=== PATIENT | female | born 1940 | race Caucasian/White ===

== ENCOUNTER → 2017-12-13 | Outpatient (CLI) | payer MEDICARE, OTHER ==
[~2017-12-13] MED LIST: ALBUTEROL SULFAT4 MG; ALBUTEROL SULFAT4 MG PO; ALBUTEROL2.5 MG/32; AMITRIPTYLINE H25 M2 PO; AMITRIPTYLINE H25 M4 PO; ASMANEX0.135 G1; ASMANEX0.135 G1 INH; ASMANEX220 MC2 IH; ASMANEX220 MCG INH; ASPIR 8181 MG PO; AVELOX 400 MG400 M1 PO; CALCIUM PO; DALIRESP500 MCG PO; ECHINACEA; EVISTA PO; Echinacea PO; FLONASE 0.05%50 MCG NASAL; FLONASE16 GM NASAL; FORADIL12 MCG INH; FUROSEMIDE 20 M20 MG; IBUPROFEN 200200 M1; IBUPROFEN 400400 M2 PO; IBUPROFEN 800800 M1 PO; K-DUR10 MEQ PO; LORTAB 5-500 T1 EAC1 PO; MULTIVITAMINS PO; MULTIVITAMINS1 EAC7 PO; OXYCODONE HCL 55 MG PO; PERCOCET 5-3251 EACH PO; PREDNISONE 10 M10 M1 PO; PREDNISONE 10 M10 MG PO; PROTONIX 20 MG20 MG PO; PROVENTIL HFA6.7 G1 INH; SINGULAIR 10 MG10 M1 PO; SPIRIVA; SPIRIVA INH; TRU BIOTICS; VENTOLIN HFA 1818 GM INH; VENTOLIN HFA INH8 GM INH; VERAPAMIL ER180 MG PO; VITAMIN C + RO500 MG PO; VITAMIN D31000 UNI2 PO; VITAMIN D400 UNI1 PO; VITAMINC500 PO; Vitamin C PO; [UNRECOGNIZED DRUG - OTHER] PO; [UNRECOGNIZED DRUG - OTHER] PO
== END ==
LOC: M.RAD 10:50
DX: Z12.31 Encounter for screening mammogram for malignant neoplasm of breast (principal); J44.9 Chronic obstructive pulmonary disease, unspecified

== ENCOUNTER → 2018-09-13 | Outpatient (CLI) | payer MEDICARE, OTHER ==
[2018-09-13 09:15] LABS: BE 2.5 mmol/L (-2 to +3); PCO2 40.2 mmHg (35.0-45.0); PO2 94.2 mmHg (75.0-100.0); pH 7.441 (7.340-7.450)
== END ==
LOC: M.LAB 08:24
PROVIDERS: Internal Medicine Pulmonary Disease
DX: J96.11 Chronic respiratory failure with hypoxia (principal)

== ENCOUNTER 2018-12-17 09:15 | Emergency (ER) | payer MEDICARE, OTHER ==
[~2018-12-17] VITALS: Ht 157.5 cm; Wt 63.5 kg
[2018-12-17] MEDS ORDERED: TRELOGY (09:45)
[2018-12-17] MEDS ORDERED: CLEOCIN HCL300 MG PO (10:02)
[2018-12-17] MEDS ORDERED: DOXYCYCLINE 10100 MG PO (10:02)
[2018-12-17 10:13] VITALS: BP 151/86
== END 2018-12-17 10:15 | disposition home or self-care (01) ==
LOC: M.ERS 09:15
DX: S61.511A Laceration without foreign body of right wrist, initial encounter (principal); J44.9 Chronic obstructive pulmonary disease, unspecified; M81.0 Age-related osteoporosis without current pathological fracture; Z98.890 Other specified postprocedural states; Z90.49 Acquired absence of other specified parts of digestive tract; Z90.89 Acquired absence of other organs; Z88.1 Allergy status to other antibiotic agents; Z88.2 Allergy status to sulfonamides; Z87.891 Personal history of nicotine dependence; W54.0XXA Bitten by dog, initial encounter; Y93.89 Activity, other specified; Y92.89 Other specified places as the place of occurrence of the external cause; Y99.8 Other external cause status

== ENCOUNTER → 2019-03-14 | Outpatient (CLI) | payer MEDICARE, OTHER ==
[~2019-03-14] MED LIST changes: +CLEOCIN HCL300 MG PO; +DOXYCYCLINE 10100 MG PO; +TRELOGY
== END ==
LOC: M.RAD 08:07
DX: Z12.31 Encounter for screening mammogram for malignant neoplasm of breast (principal)

== ENCOUNTER → 2019-04-13 | Outpatient (CLI) | payer MEDICARE, OTHER ==
[2019-04-13 09:17] LABS: CREATININE 0.8 mg/dL (0.6-1.3)
== END ==
LOC: M.LAB 08:00 → M.CT 09:00
PROVIDERS: Internal Medicine Pulmonary Disease
DX: J43.9 Emphysema, unspecified (principal); J44.9 Chronic obstructive pulmonary disease, unspecified

== ENCOUNTER → 2019-04-25 | Day surgery (SDC) | payer MEDICARE, OTHER ==
[~2019-04-25] MED LIST changes: +TRELEGY ELLIPT1 EACH INH
[2019-04-25 08:57] LABS: HEMATOCRIT 42.6 % (37.0-47.0); HEMOGLOBIN 14.5 gm/dL (12.0-15.0); MCH 34.2 pg (26.0-34.0); MCV 100.6 fL (80.0-100.0); MPV 7.3 fl. (7.2-11.1); RBC 4.23 mil/uL (4.20-5.00); RDW-CV 13.7 % (10.5-14.5); WBC 14.2 thou/uL (4.0-11.0)
[2019-04-25 09:06] LABS: CALCIUM 8.7 mg/dL (8.5-10.1); CREATININE 0.9 mg/dL (0.6-1.3)
[2019-04-25 09:09] LABS: POTASSIUM 2.9 mmol/L (3.5-5.1)
[2019-04-25 12:49] LABS: MAGNESIUM 1.4 mg/dL (1.8-2.4)
--- NOTE | 2019-04-27 15:08 | PATH ---
[address] [address] PATHOLOGY RPT PROCEDURE Name: FERN SHER Room: [facility].#: [id number] Admission: 04/25/19 Date of : 42 Discharge: Report #: [id number] Path Case #: [id number] [facility] Accession Number: [id number] . 01 Material submitted: . colon - MID TRANSVERSE COLON POLYP. Modifiers: mid, transverse . 01 Clinical history: . Change in bowel habits; family history of breast cancer; fecal urgency . 02 Diagnosis: Mid transverse colon polyp: - Tubular adenoma, negative for high grade dysplasia. . (HECTOR:mml; 04/27/2019) [facility] 04/27/2019 1148 Local . 02 Electronically signed: . Rupert Bloom MD, Pathologist NPI- [id number] . 01 Gross description: . The specimen is received in formalin, labeled "Fern Bittel, mid transverse colon polyp". Received are four segments of pale amaya soft tissue ranging in size from 0.3 to 0.5 cm in maximum dimensions. The specimen is submitted entirely in cassette A1. (CAA; 04/26/2019) [facility] 04/26/2019 1151 Local . 02 Pathologist provided ICD-10: D12.3 . 02 CPT . 542743 Specimen Comment: A courtesy copy of this report has been sent to [phone] Specimen Comment: Report sent to Performed at: [address], [place], [place] [id number] MD Andrey Pennington MD Phone: [phone] Performed at: [facility] [address], [place], [place] [id number] MD Rupert Bloom MD Phone: [phone]
--- NOTE | 2019-05-11 14:52 | EKG ---
[place] [address] ELECTROCARDIOGRAM REPORT Name: ELISE SHER Room: [facility]#: [id number] Admission: 04/25/19 Attend Phys: Mark Marsh, Discharge: Date of : 42 Date of Service: 04/25/19 0854 Report #: [id number] THIS REPORT FOR: //name// [facility] Test Date: 2019-04-25 Test Time: 08:54:54 Pat Name: ELISE SHER Department: Room: Gender: F Guest Services: : 1940 Requested By: Mark Marsh Order Number: [id number] Reading MD: Nikolai Zhong Measurements Intervals [place] Rate: 116 P: 81 MS: 147 QRS: 64 QRSD: 93 T: 56 QT: 330 QTc: 459 Interpretive Statements Sinus tachycardia Atrial premature complex Borderline ST depression, diffuse leads Compared to ECG 11/01/2016 12:58:40 Atrial premature complex(es) now present ST (T wave) deviation now present Sinus rhythm no longer present Electronically Signed On 04-26-2019 11:09:58 SHELL PLATER by Nikolai Zhong [email or web address] <ELECTRONICALLY SIGNED> By: Nikolai Zhong MD, FACC 04/26/19 1109 0854 0854 Nikolai Zhong MD, FACC /EPI
== END | disposition home or self-care (01) ==
LOC: M.SUR 08:31
PROVIDERS: Internal Medicine Gastroenterology
DX: D12.3 Benign neoplasm of transverse colon (principal); K62.1 Rectal polyp; K64.8 Other hemorrhoids; K64.4 Residual hemorrhoidal skin tags; K59.00 Constipation, unspecified; K57.30 Diverticulosis of large intestine without perforation or abscess without bleeding; K22.2 Esophageal obstruction; K31.819 Angiodysplasia of stomach and duodenum without bleeding; K44.9 Diaphragmatic hernia without obstruction or gangrene; J44.9 Chronic obstructive pulmonary disease, unspecified; K21.9 Gastro-esophageal reflux disease without esophagitis; M19.90 Unspecified osteoarthritis, unspecified site; Z98.890 Other specified postprocedural states; Z79.899 Other long term (current) drug therapy; Z87.891 Personal history of nicotine dependence; Z90.49 Acquired absence of other specified parts of digestive tract; Z88.2 Allergy status to sulfonamides; Z98.51 Tubal ligation status; Z88.8 Allergy status to other drugs, medicaments and biological substances; Z80.3 Family history of malignant neoplasm of breast

== ENCOUNTER → 2019-07-23 | Outpatient (CLI) | payer MEDICARE, OTHER ==
--- NOTE | 2019-07-23 16:31 | 2DMMODE ---
[place] [address] 2 D/M-MODE ECHOCARDIOGRAM Name: ELISE SHER Room: [facility]#: [id number] Admission: 07/23/19 Attend Phys: Physician not on s Discharge: Date of : 42 Date of Service: 07/23/19 1629 Report #: [id number] THIS REPORT FOR: cc: Chely Burch Linda J. DO Liston, Michael J. MD [facility] ~ APPROVED REPORT Study performed: 07/23/2019 09:31:56 EXAM: Comprehensive 2D, Doppler, and color-flow Echocardiogram Patient Location: Out-Patient BSA: 1.64 HR: 98 bpm BP: 130/75 mmHg Other Information Study Quality: Good Indications COPD Dyspnea 2D Dimensions IVSd: 11.63 (7-11mm) LVOT Diam: 20.35 (18-24mm) LVDd: 37.49 mm PWd: 9.65 (7-11mm) Ascending Ao: 26.43 (22-36mm) LVDs: 27.72 (25-40mm) Aortic Root: 22.04 mm Volumes Left Atrial Volume (Systole) LA ESV Index: 13.70 mL/m2 Aortic Valve AoV Peak Ian.: 1.67 m/s AO Peak Gr.: 11.13 mmHg LVOT Max P.43 mmHg AO Mean Gr.: 6.23 mmHg LVOT Mean P.92 mmHg LVOT Max V: 1.05 m/s AO V2 VTI: 29.07 cm LVOT Mean V: 0.62 m/s GUANAKO (VTI): 2.20 cm2 LVOT V1 VTI: 19.63 [place] [address] 2 D/M-MODE ECHOCARDIOGRAM Name: ELISE SHER Room: [facility]#: [id number] Admission: 07/23/19 Attend Phys: Physician not on s Discharge: Date of : 42 Date of Service: 07/23/19 1629 Report #: [id number] E/A Ratio: 0.79 MV Decel. Time: 234.13 ms MV E Max Ian.: 0.74 m/s MV PHT: 67.90 ms MVA (PHT): 3.24 cm2 TDI E/Lateral E': 7.40 E/Medial E': 8.22 Medial E' Ian.: 0.09 m/s Lateral E' Ian.: 0.10 m/s Pulmonary Valve PV Peak Ian.: 0.99 m/s PV Peak Gr.: 3.94 mmHg Tricuspid Valve RAP Estimate: 5.00 mmHg TR Peak Gr.: 19.79 mmHg RVSP: 24.79 mmHg PA Pressure: 24.79 mmHg Left Ventricle The left ventricle is normal size. There is normal LV segmental wall motion. There is normal left ventricular wall thickness. Left ventricular systolic function is normal. LVEF is 55-60%. Grade I - abnormal relaxation pattern. Right Ventricle The right ventricle is normal size. The right ventricular systolic function is normal. Atria The left atrium size is normal. The right atrium size is normal. Aortic Valve The aortic valve is normal in structure. No aortic regurgitation is present. There is no aortic valvular stenosis. Mitral Valve The mitral valve is normal in structure. Mild mitral regurgitation. No evidence of mitral valve stenosis. Tricuspid Valve The tricuspid valve is normal in structure. Mild tricuspid regurgitation. No pulmonary [place] [address] 2 D/M-MODE ECHOCARDIOGRAM Name: CHRISTOSELISE Room: [facility]#: [id number] Admission: 07/23/19 Attend Phys: Physician not on s Discharge: Date of : 42 Date of Service: 07/23/19 1629 Report #: [id number] The pulmonary valve is normal in structure. There is no pulmonic valvular regurgitation. Great Vessels The aortic root is normal in size. IVC is normal in size and collapses >50% with inspiration. Pericardium There is no pericardial effusion. <Conclusion> The left ventricle is normal size. There is normal left ventricular wall thickness. Left ventricular systolic function is normal. LVEF is 55-60%. Grade I - abnormal relaxation pattern. Mild mitral regurgitation. Mild tricuspid regurgitation. No pulmonary hypertension. IVC is normal in size and collapses >50% with inspiration. <ELECTRONICALLY SIGNED> By: Nikolai Zhong MD, FACC 07/23/19 1629 1629 1629 Nikolai Zhong MD, FACC /INF
== END ==
LOC: M.CRD 05-28 09:00
DX: I08.1 Rheumatic disorders of both mitral and tricuspid valves (principal); J44.9 Chronic obstructive pulmonary disease, unspecified

== ENCOUNTER 2020-01-18 15:58 | Inpatient (IN) | payer MEDICARE, OTHER ==
[~2020-01-18] VITALS: Ht 157.5 cm; Wt 76.2 kg
[2020-01-18 16:10] VITALS: BP 148/90
[2020-01-18 16:37] LABS: HEMATOCRIT 41.8 % (37.0-47.0); HEMOGLOBIN 13.9 gm/dL (12.0-15.0); MCH 33.5 pg (26.0-34.0); MCHC 33.3 g/dL (28.0-37.0); MCV 100.5 fL (80.0-100.0); MPV 7.3 fl. (7.2-11.1); NUCLEATED RBCS 0 /100WBC; PLATELET COUNT* 152 thou/uL (150-400); RBC 4.15 mil/uL (4.20-5.00); RDW-CV 13.1 % (10.5-14.5); WBC 2.7 thou/uL (4.0-11.0)
[2020-01-18 16:49] LABS: CALCIUM 8.3 mg/dL (8.5-10.1); CREATININE 0.9 mg/dL (0.6-1.3); POTASSIUM 3.5 mmol/L (3.5-5.1)
[2020-01-18 16:59] LABS: ALBUMIN 3.3 g/dL (3.4-5.0); MAGNESIUM 1.6 mg/dL (1.8-2.4); TOTAL BILIRUBIN 0.3 mg/dL (<0.1-1.0); TOTAL PROTEIN 6.9 g/dL (6.4-8.2)
--- NOTE | 2020-01-18 17:06 | EKG ---
[place] [address] ELECTROCARDIOGRAM REPORT Name: ELISE SHER Room: [facility]#: [id number] Admission: 01/18/20 Attend Phys: Discharge: Date of : 42 Date of Service: 01/18/20 1617 Report #: [id number] THIS REPORT FOR: //name// [facility] ED Test Date: 2020-01-18 Test Time: 16:17:59 Pat Name: ELISE SHER Department: Room: Gender: Environmental Remediation Engineer: DIXIE : 1940 Requested By: Enrique Burr Order Number: [id number] MD: Nikolai Zhong Measurements Intervals [place] Rate: 119 P: 75 [place]: 44 QRS: 67 QRSD: 87 T: 19 QT: 303 QTc: 427 Interpretive Statements Sinus tachycardia Probable left atrial enlargement Compared to ECG 04/25/2019 08:54:54 Atrial premature complex(es) no longer present ST (T wave) deviation no longer present Electronically Signed On 01-18-2020 17:06:01 EATING DISORDER SPECIALIST by Nikolai Zhong [email or web address] <ELECTRONICALLY SIGNED> By: Nikolai Zhong MD, FACC 01/18/20 1706 1617 1617 Nikolai Zhong MD, FAC /EPI
[2020-01-18 17:07] LABS: ABSOLUTE LYMPHOCYTES 0.3 thou/uL (0.8-5.3); ABSOLUTE MONOCYTES 0.5 thou/uL (0.0-1.2); ABSOLUTE NEUTROPHILS 1.9 thou/uL (1.6-8.1); ATYPICAL LYMPHS 4 %; PLATELET ESTIMATE ADEQUATE
[2020-01-18 18:40] VITALS: BP 153/75
[2020-01-18 19:22] VITALS: BP 187/90
[2020-01-18 21:00] VITALS: BP 151/69
[2020-01-19] VITALS: BP 141/66
[2020-01-19 04:00] VITALS: BP 127/73
--- NOTE | 2020-01-19 04:56 | NUR ---
PT A&O X 4, ON 3L BY NC. MEDS GIVEN ORDERED. UP TO BSC INDEPENDENTLY. PT HAD BM X 2, LOOSE STOOL. CALL LIGHT WITHIN REACH. ELECTROLYTE REPLACEMENT IN PROGRESS. BREATHING TREATMENT Q4H. CALL LIGHT WITHIN REACH. WILL CONTINUE TO MONITOR.
[2020-01-19 05:24] LABS: HEMATOCRIT 36.8 % (37.0-47.0); HEMOGLOBIN 12.3 gm/dL (12.0-15.0); MCH 33.5 pg (26.0-34.0); MCHC 33.3 g/dL (28.0-37.0); MCV 100.5 fL (80.0-100.0); MPV 7.5 fl. (7.2-11.1); RBC 3.66 mil/uL (4.20-5.00); RDW-CV 13.1 % (10.5-14.5)
[2020-01-19 06:03] LABS: ALBUMIN 2.7 g/dL (3.4-5.0); CALCIUM 7.5 mg/dL (8.5-10.1); CREATININE 0.8 mg/dL (0.6-1.3); MAGNESIUM 1.8 mg/dL (1.8-2.4); TOTAL BILIRUBIN 0.2 mg/dL (<0.1-1.0)
[2020-01-19 06:46] LABS: WBC 1.1 thou/uL (4.0-11.0)
--- NOTE | 2020-01-19 07:45 | NUR ---
ASSUMED CARE OF PATIENT THIS MORNING FROM NIGHT NURSE. PT IS DOING WELL AND HAS NO CO OF PAIN OR NAUSEA AT THIS TIME. SHE WAS EDUCATED ON POC, DISEASE PROCESS AND USING THE CALL LIGHT FOR ASSISTANCE. WILL CONTINUE TO MONITOR.
[2020-01-19 08:00] VITALS: BP 133/64
[2020-01-19 12:00] VITALS: BP 129/62
[2020-01-19 16:00] VITALS: BP 151/70
[2020-01-19 20:30] VITALS: BP 168/75
[2020-01-20] VITALS (7 sets, daily range): BP systolic 92–165; BP diastolic 36–80
--- NOTE | 2020-01-20 04:40 | NUR ---
PT A&O, ON 3L. TYLENOL GIVEN X1 FOR BACK PAIN & FEVER. ST ON THE HEART MONITOR. NO DIARRHEA THIS SHIFT. CALL LIGHT WITHIN REACH. WILL CONTINUE TO MONITOR.
[2020-01-20 05:25] LABS: HEMATOCRIT 36.6 % (37.0-47.0); HEMOGLOBIN 12.2 gm/dL (12.0-15.0); MCH 34.2 pg (26.0-34.0); MCHC 33.2 g/dL (28.0-37.0); MCV 102.8 fL (80.0-100.0); MPV 7.7 fl. (7.2-11.1); RBC 3.56 mil/uL (4.20-5.00); RDW-CV 13.5 % (10.5-14.5)
[2020-01-20 05:37] LABS: WBC 5.7 thou/uL (4.0-11.0)
[2020-01-20 05:56] LABS: ALBUMIN 2.9 g/dL (3.4-5.0); CALCIUM 7.7 mg/dL (8.5-10.1); CREATININE 1.1 mg/dL (0.6-1.3); POTASSIUM 4.2 mmol/L (3.5-5.1); TOTAL BILIRUBIN 0.2 mg/dL (<0.1-1.0); TOTAL PROTEIN 5.5 g/dL (6.4-8.2)
--- NOTE | 2020-01-20 17:56 | NUR ---
PT IS AO X4 AND UP ADLIB TO [facility]. SHE COMPLAINS TODAY OF FEELING TIRED, SHE WAS OFFERED AND DECLINED A SHOWER. SHE IS ON 3.5L OXYGEN PER NC WITH A TIGHT PRODUCTIVE COUGH. PT HAS COMPLAINED OF BACK PAIN AND IS USING TYLENOL AND BENGAY FOR RELIEF. SHE HAD A BM THIS AM THAT WAS SEMIFORMED, SHE WAS GIVEN LOMOTOL LAST PM. PT DBP HAS BEEN LOW TODAY, SHE INITIALLY WAS IN BED BUT THEN GOT UP TO CHAIR FOR PM MEAL.
--- NOTE | 2020-01-21 04:38 | NUR ---
PT A&O, ON 3-4L OF O2. HR WENT UP TO 160S, DR NOTIFIED AND ORDER RECEIVED. C/O BACKPAIN. TYLENOL GIVEN FOR PAIN AND FEVER. PT USES BSC FOR BM, HAVING LOOSE STOOL. WILL CONTINUE TO MONITOR.
[2020-01-21 04:43] VITALS: BP 153/77
[2020-01-21 05:00] LABS: HEMATOCRIT 37.5 % (37.0-47.0); HEMOGLOBIN 12.5 gm/dL (12.0-15.0); MCH 33.1 pg (26.0-34.0); MCHC 33.3 g/dL (28.0-37.0); MCV 99.2 fL (80.0-100.0); MPV 7.9 fl. (7.2-11.1); RBC 3.78 mil/uL (4.20-5.00)
[2020-01-21 05:35] LABS: ALBUMIN 2.6 g/dL (3.4-5.0); CALCIUM 7.2 mg/dL (8.5-10.1); CREATININE 0.8 mg/dL (0.6-1.3); MAGNESIUM 1.7 mg/dL (1.8-2.4); POTASSIUM 3.5 mmol/L (3.5-5.1); TOTAL BILIRUBIN 0.2 mg/dL (<0.1-1.0); TOTAL PROTEIN 5.7 g/dL (6.4-8.2)
[2020-01-21 08:45] VITALS: BP 150/69
[2020-01-21 12:46] VITALS: BP 104/63
--- NOTE | 2020-01-21 16:45 | NUR ---
SPOKE WITH PTS. , QING SHER, ON PHONE, PT.IS COVID + AND IN ENHANCED PRECAUTIONS. SHE DID NOT ANWER PHONE IN HER ROOM. HE SAID SHE IS PRETTY INDEPENDENT. WEARS CONTINUOUS HOME O2 THROUGH [employer]. ALSO HAS A NEBULIZER. NO OTHER DME. NO HX OF HOME HEALTH OR SNF. HE WILL BE ABLE TO ASSIST HER WHEN SHE COMES HOME. DAUGHTER, IS ALSO SUPPORTIVE.
--- NOTE | 2020-01-21 17:55 | NUR ---
PT HAS BEEN IN BED MOST OF THE DAY C/O FATIGUE. HER COUGH IS MORE WET BUT NOT EXPECTORATED. FLUIDS WERE INITIATED AND IV ANTIBIOTICS GIVEN PER EMAR. PT HAD TYLENOL AND IBUPROFEN AND STATES TYLENOL HELPED MORE WITH HER GENERIZED ACHES IN HER BACK. BENGAY WAS PUT ON SPINE PER PT REQUEST. OXYGEN NEED IS STILL AT HOME DOSE OF 3.5L PER NC. PT DID NOT HAVE ANY SUSTAINED TACHYCARDIA SHE DID LAST EVENING. SHE DENIES ANY CHEST PAIN OR INCREASED SOA. FAMILY HAS CALLED TO CHECK ON HER AND GET UPDATE WITH HER CONSENT.
[2020-01-21 20:00] VITALS: BP 144/78
[2020-01-22] VITALS: BP 128/42
[2020-01-22 04:00] VITALS: BP 140/60
--- NOTE | 2020-01-22 04:59 | NUR ---
ASSUMED PATIENT CARE AT 1900. PATIENT ALERT AND ORIENTED TIMES FOUR. MINOR COMPLAINTS OF PAIN NOTED. CONTROLLED WITH ORAL MEDS. REMAINS ON NC AT 4L. SLIGHTLY FEBRILE THROUGH THE NIGHT. BLANKETS REMOVED, AFEBRILE AT NEXT CHECK. HOURLY ROUNDING AND CASING SEWER COMPLETED CHARTED.
[2020-01-22 08:30] VITALS: BP 157/70
[2020-01-22 12:00] VITALS: BP 152/71
[2020-01-22 16:00] VITALS: BP 140/62
--- NOTE | 2020-01-22 18:28 | NUR ---
PT RESTING IN BED,REPOSITIONS SELF WELL IN BED. POOR APPETITE. PT ENCOURAGED TO BE UP ON SIDE OF BED BUT STATES SHE IS TOO FATIGUED. O2@4L NC. SOA WITH EXERTION. PT REMAINS IN ENHANCED PRECAUTIONS FOR COVID. FAMILY UPDATED ON PT STATUS. UNABLE TO GAIN ACCESS TODAY,DR CHACON TO LEAVE IV OUT
[2020-01-22 20:00] VITALS: BP 179/82
[2020-01-23] VITALS: BP 113/53
[2020-01-23 04:00] VITALS: BP 149/69
--- NOTE | 2020-01-23 05:45 | NUR ---
ASSUMED PATIENT CARE AT 1900. PATIENT HAS INCREASING OXYGEN DEMANDS THROUGH THE NIGHT. HAS GONE FROM 3LNC TO HIFLO AT 12L TO MAINTAIN OXYGENATION IN THE LOW 90'S. NO COMPLAINTS OF PAIN OR DISCOMFORT NOTED. HEARTRATE HAS SHOWN IMPROVEMENT WITH INCREASE IN O2. WENT FROM 130S TO 90S. PATIENT STATES THAT SHE FEELS BETTER THIS AM AND IS NOT SO SOA. EQUIPMENT OPERATOR INTERMODAL YARD AND HOURLY ROUNDING COMPLETED CHARTED.
[2020-01-23 06:19] LABS: BE 4.7 mmol/L (-2 to +3); PCO2 45.5 mmHg (35.0-45.0); pH 7.435 (7.340-7.450)
[2020-01-23 06:23] LABS: PO2 131.7 mmHg (75.0-100.0)
[2020-01-23 07:12] LABS: HEMATOCRIT 34.5 % (37.0-47.0); HEMOGLOBIN 11.7 gm/dL (12.0-15.0); MCH 33.4 pg (26.0-34.0); MCHC 33.9 g/dL (28.0-37.0); MCV 98.3 fL (80.0-100.0); MPV 7.9 fl. (7.2-11.1); RBC 3.5 mil/uL (4.20-5.00); WBC 4.8 thou/uL (4.0-11.0)
[2020-01-23 07:30] LABS: ALBUMIN 2.2 g/dL (3.4-5.0); CALCIUM 7.5 mg/dL (8.5-10.1); CREATININE 0.7 mg/dL (0.6-1.3); MAGNESIUM 1.8 mg/dL (1.8-2.4); TOTAL BILIRUBIN 0.3 mg/dL (<0.1-1.0); TOTAL PROTEIN 5.4 g/dL (6.4-8.2)
[2020-01-23 12:12] VITALS: BP 146/78
--- NOTE | 2020-01-23 15:24 | NUR ---
VASCULAR ACCESS: CONSULTED FOR PICC. CHART AND PT EVALUATED AND MEETS CRITERIA FOR PICC. CONSENT NOTED. DUAL LUMAN POWER PICC INSERTED TO RIGHT UPPER BASILIC PER PROTOCOL. LINE TRIMMED AT 40CM AND ADVANCED TO 0CM EXTERNAL. TIP CONFORMATION WITH SHERLOCK 3CG MAX P-WAVE NOTED. LINE SECURED AND RELEASED FOR USE. PRIMARY NURSING AWARE OF NEW LINE.
[2020-01-23 16:19] VITALS: BP 126/53
[2020-01-23 21:00] VITALS: BP 126/52
[2020-01-23 22:53] VITALS: BP 104/45; BP 141/61
[2020-01-24] VITALS: BP 108/45
[2020-01-24 02:06] LABS: HEPATITIS B SURFACE AG Negative (Negative)
[2020-01-24 04:00] VITALS: BP 126/51
--- NOTE | 2020-01-24 06:56 | NUR ---
PATIENT SLEPT PART OF THE NIGHT. PATIENT WAS GIVEN 1 UNIT OF PLASMA ORDERED WITH NO ADVERSE REACTIONS. PATIENT IS DOWN TO 8L HFNC. PATIENT STATES SHE IS FEELING BETTER. WILL CONTINUE TO MONITOR.
[2020-01-24 08:00] VITALS: BP 151/84
[2020-01-24 16:02] VITALS: BP 114/82
[2020-01-24 16:06] LABS: HIV-1/HIV-2 ANTIBODY Non Reactive (Non Reactive)
--- NOTE | 2020-01-24 17:04 | 2DMMODE ---
[place] [address] 2 D/M-MODE ECHOCARDIOGRAM Name: ELISE SHER CHAS Room: [address] IN [facility]#: [id number] Admission: 01/18/20 Attend Phys: Flor Sinclair, Discharge: Date of : 42 Date of Service: 01/24/20 1704 Report #: [id number] THIS REPORT FOR: cc: Chely Burch Linda J. DO Liston, Michael J. MD [facility] ~ APPROVED REPORT Study performed: 01/24/2020 16:20:23 EXAM: Comprehensive 2D, Doppler, and color-flow Echocardiogram Patient Location: In-Patient Room #: [facility] Status: routine BSA: 1.64 HR: 87 bpm BP: 151/84 mmHg Rhythm: NSR Other Information Study Quality: Good Indications Abnormal ECG 2D Dimensions IVSd: 10.51 (7-11mm) LVOT Diam: 19.94 (18-24mm) LVDd: 47.63 mm PWd: 8.13 (7-11mm) LVDs: 28.55 (25-40mm) Aortic Root: 31.32 mm Volumes Left Atrial Volume (Systole) LA ESV Index: 24.40 mL/m2 Aortic Valve AoV Peak Ian.: 1.57 m/s AO Peak Gr.: 9.87 mmHg LVOT Max P.54 mmHg AO Mean Gr.: 5.41 mmHg LVOT Mean P.24 mmHg LVOT Max V: 1.18 m/s AO V2 VTI: 26.07 cm LVOT Mean V: 0.67 m/s GUANAKO (VTI): 2.41 cm2 LVOT V1 VTI: 20.09 [place] [address] 2 D/M-MODE ECHOCARDIOGRAM Name: ELISE SHER Room: [address] [place] ..#: [id number] Admission: 01/18/20 Attend Phys: Flor Sinclair, Discharge: Date of : 42 Date of Service: 01/24/20 1704 Report #: [id number] Mitral Valve E/A Ratio: 0.77 MV Decel. Time: 171.97 ms MV E Max Ian.: 0.79 m/s MV PHT: 49.87 ms MVA (PHT): 4.41 cm2 TDI E/Lateral E': 8.78 E/Medial E': 11.29 Medial E' Ian.: 0.07 m/s Lateral E' Ian.: 0.09 m/s Pulmonary Valve PV Peak Ian.: 1.04 m/s PV Peak Gr.: 4.34 mmHg Tricuspid Valve RAP Estimate: 5.00 mmHg TR Peak Gr.: 22.95 mmHg RVSP: 28.00 mmHg PA Pressure: 28.00 mmHg Left Ventricle The left ventricle is normal size. There is normal LV segmental wall motion. There is normal left ventricular wall thickness. Left ventricular systolic function is normal. LVEF is 60-65%. Grade I - abnormal relaxation pattern. Right Ventricle The right ventricle is normal size. The right ventricular systolic function is normal. Atria The left atrium size is normal. The right atrium size is normal. Aortic Valve The aortic valve is normal in structure. No aortic regurgitation is present. There is no aortic valvular stenosis. Mitral Valve The mitral valve is normal in structure. Mild mitral regurgitation. No evidence of mitral valve stenosis. Tricuspid Valve The tricuspid valve is normal in structure. Trace tricuspid regurgitation. [place] [address] 2 D/M-MODE ECHOCARDIOGRAM Name: ELISE SHER Room: [address]#: [id number] Admission: 01/18/20 Attend Phys: Flor Sinclair, Discharge: Date of : 42 Date of Service: 01/24/20 1704 Report #: [id number] Pulmonic Valve The pulmonary valve is normal in structure. There is no pulmonic valvular regurgitation. Great Vessels The aortic root is normal in size. IVC is normal in size and collapses >50% with inspiration. Pericardium There is no pericardial effusion. <Conclusion> The left ventricle is normal size. There is normal left ventricular wall thickness. Left ventricular systolic function is normal. LVEF is 60-65%. Grade I - abnormal relaxation pattern. Mild mitral regurgitation. Trace tricuspid regurgitation. No pulmonary hypertension. IVC is normal in size and collapses >50% with inspiration. <ELECTRONICALLY SIGNED> By: Nikolai Zhong MD, FACC 01/24/201703 03 03 Nikolai Zhong MD, FACC /INF
--- NOTE | 2020-01-24 18:45 | NUR ---
ASSUMED PT CARE AT 0730, PT AOX4, NO C/O PAIN OR SHORTNESS OF BREATH AT FIRST BUT THIS AFTERNOON, PT STATES SHORT OF BREATH WHEN HIT W/ COUGHING SPELLS, SATS STILL ABOVE 90%. PT POTASSIUM LOW AND REPLACED, REDRAW ORDERED. PT GOAL IS TO KEEP SATS ABOVE 90%. AM ASSESSMENT CHARTED, MEDS PER MAY, HOURLY ROUNDING OBSERVED, FALL PRECAUTIONS IN PLACE, CALL LIGHT W/IN REACH.
[2020-01-24 20:00] VITALS: BP 150/82
[2020-01-25] VITALS (7 sets, daily range): BP systolic 129–163; BP diastolic 58–81
[2020-01-25 05:22] LABS: BE 1.1 mmol/L (-2 to +3); PCO2 44.2 mmHg (35.0-45.0); PO2 97.4 mmHg (75.0-100.0); pH 7.394 (7.340-7.450)
[2020-01-25 05:56] LABS: HEMATOCRIT 37.9 % (37.0-47.0); HEMOGLOBIN 12.6 gm/dL (12.0-15.0); MCH 32.9 pg (26.0-34.0); MCHC 33.3 g/dL (28.0-37.0); MCV 98.7 fL (80.0-100.0); MPV 7.6 fl. (7.2-11.1); RBC 3.84 mil/uL (4.20-5.00); RDW-CV 13.2 % (10.5-14.5); WBC 12.5 thou/uL (4.0-11.0)
[2020-01-25 06:12] LABS: ALBUMIN 2.6 g/dL (3.4-5.0); CALCIUM 8.3 mg/dL (8.5-10.1); POTASSIUM 3.8 mmol/L (3.5-5.1); TOTAL BILIRUBIN 0.3 mg/dL (<0.1-1.0); TOTAL PROTEIN 6.3 g/dL (6.4-8.2)
--- NOTE | 2020-01-25 06:27 | NUR ---
DURING LAST EVENING REPORT AT CHANGE OF SHIFT PT REPORTS SOA. SATS DECLINING AND RT CALLED AND O2 SUPPORT GIVEN TO INCREASE SATS TO 90%. DURING HS MED PASS PT HAD COUGHING FIT, CONGESTED COUGH WITH THICK SPUTUM THAT WAS DIFFICULT TO EXPECTORATE. THIS CAUSED INCREASE ANXIETY AND WORK OF BREATHING WITH SATS DECREASING TO 84-85%. RT ON FLOOR AND ASSESSED PT. O2 ADJUSTED TO 10L HFC AND HS MEDS GIVEN. PT CALMED AND BREATHING BECAME RELAXED AND SATS INCREASED TO 91-93%. TELE SR ST OVERNIGHT. PT ABLE TO SLEEP FAIRLY WELL AFTER HS EPISODE OF SOA SHE STATES. RT TX GIVEN ORDERED. MEDS GIVEN ORDERED, MUCINEX ADDED TO EMAR. TAKES PILLS WHOLE WITH WATER. AOX4, ABLE TO USE CALL LITE AND MAKE NEEDS KNOWN.ABGS AND LABS DRAWN THIS MORNING. REMAINS ON COVID ISOLATION.
--- NOTE | 2020-01-25 14:24 | NUR ---
Nutrition: Pt admitted with COVID. H/o COPD, osteoporosis. Physician indicated moderate PCM - defer. Pt assessed for LOS. Wt: 139#. 2gm Na diet. Alb 2.6, prealb 12.7, BG 133, GFR 54. HFNC. Protein stores are low. Will order Ensure for added protein and kcal intake. Consider Mild risk. RD available.
[2020-01-25 15:37] LABS: APTT 25.5 Seconds (25.0-31.3); PROTIME 10.9 Seconds (9.20-11.50)
--- NOTE | 2020-01-25 18:02 | NUR ---
ASSUMED PT CARE AT 0730, PT AOX4, NO C/O PAIN BUT EXPERIENCES SHORTNESS OF BREATH ANYTIME SHE MOVES AROUND. PT WORKED W/ RT MULTIPLE TIMES TODAY AND PULM, SEE NOTES. PT GOAL IS TO KEEP SATS ABOVE 90% AND DECREASE SHORTNESS OF BREATH. PT HAS BIPAP IN ROOM TO WEAR AT NIGHT. AM ASSESSMENT CHARTED, MEDS PER MAR, HOURLY ROUNDING OBSERVED, FALL PRECAUTIONS IN PLACE, CALL LIGHT W/IN REACH.
[2020-01-26] VITALS: BP 130/69
[2020-01-26 04:00] VITALS: BP 147/70
--- NOTE | 2020-01-26 06:51 | NUR ---
PT CARE ASSUMED AT 1930. PT ABLE TO TITRATE TO 9L HFC. PT IS ANXIOUS. DENIES PAIN. ALERT AND ORIENTED X4. CALL LIGHT WITHIN REACH AND BED IN LOW POSITION. HOURLY ROUNDING DONE FOR PT SAFETY. PT RECIEVED CONVALESCENT PLASMA LAST NIGHT.
[2020-01-26 08:10] VITALS: BP 154/74
[2020-01-26 10:55] LABS: HEMOGLOBIN 12.3 gm/dL (12.0-15.0); MCH 32.2 pg (26.0-34.0); MCHC 32.4 g/dL (28.0-37.0); MCV 99.2 fL (80.0-100.0); MPV 7.8 fl. (7.2-11.1); NUCLEATED RBCS 0 /100WBC; PLATELET COUNT* 259 thou/uL (150-400); RBC 3.82 mil/uL (4.20-5.00); RDW-CV 13.2 % (10.5-14.5); WBC 15.3 thou/uL (4.0-11.0)
[2020-01-26 11:18] LABS: ALBUMIN 2.8 g/dL (3.4-5.0); CALCIUM 8.3 mg/dL (8.5-10.1); CREATININE 1.2 mg/dL (0.6-1.3); MAGNESIUM 1.9 mg/dL (1.8-2.4); TOTAL BILIRUBIN 0.3 mg/dL (<0.1-1.0); TOTAL PROTEIN 6.5 g/dL (6.4-8.2)
[2020-01-26 13:47] LABS: ABSOLUTE LYMPHOCYTES 0.6 thou/uL (0.8-5.3); ABSOLUTE MONOCYTES 0.2 thou/uL (0.0-1.2); ABSOLUTE NEUTROPHILS 14.5 thou/uL (1.6-8.1)
[2020-01-26 13:48] LABS: HYPOCHROMASIA Occasional; PLATELET ESTIMATE ADEQUATE
[2020-01-26 14:59] VITALS: BP 130/64
[2020-01-26 19:20] VITALS: BP 136/70
--- NOTE | 2020-01-26 19:56 | NUR ---
FROM 0700 UNTIL 1900 PT CARE PROVIDED. PT HAS DENIED SHORTNESS OF BREATH AND NO INDICATION OF RESPIRATORY DISTRESS. CT ANGIO OF CHEST RELATED TO ELEVATED D DIMER RESULT WAS NEGATIVE. PT GIVES VERBAL PERMISSION TO UPDATE FAMILY ON THIS RESULT.
[2020-01-26 20:10] VITALS: BP 130/75
[2020-01-27 01:06] VITALS: BP 135/43
--- NOTE | 2020-01-27 05:29 | NUR ---
PT CARE ASSUMED AT 1930. PT RANJEET TO TOLERATE BIPAP OVERNIGHT. PT IS ANXIOUS. DENIES PAIN. ALERT AND ORIENTED X4. CALL LIGHT WITHIN REACH AND BED IN LOW POSITION. HOURLY ROUNDING DONE FOR PT SAFETY.
[2020-01-27 05:39] VITALS: BP 142/78
[2020-01-27 08:00] VITALS: BP 146/78
[2020-01-27 10:17] LABS: ABSOLUTE LYMPHOCYTES 0.4 thou/uL (0.8-5.3); ABSOLUTE MONOCYTES 0.6 thou/uL (0.0-1.2); ABSOLUTE NEUTROPHILS 13.9 thou/uL (1.6-8.1); BASOPHILS 0.2 %; HEMATOCRIT 37.9 % (37.0-47.0); HEMOGLOBIN 12.3 gm/dL (12.0-15.0); LYMPHOCYTES 2.6 %; MCH 32.1 pg (26.0-34.0); MCHC 32.5 g/dL (28.0-37.0); MCV 98.7 fL (80.0-100.0); MONOCYTES 3.8 %; MPV 7.6 fl. (7.2-11.1); NUCLEATED RBCS 0 /100WBC; PLATELET COUNT* 266 thou/uL (150-400); POLYS 93.4 %; RBC 3.83 mil/uL (4.20-5.00); RDW-CV 13.6 % (10.5-14.5); WBC 14.9 thou/uL (4.0-11.0)
[2020-01-27 10:44] LABS: CALCIUM 8.6 mg/dL (8.5-10.1); CREATININE 1.2 mg/dL (0.6-1.3)
[2020-01-27 12:00] VITALS: BP 136/67
[2020-01-27 16:00] VITALS: BP 138/52
--- NOTE | 2020-01-27 19:43 | NUR ---
PT CARE PROVIDED FROM 0700 UNTIL 1900. PT HAS RESTED WELL HOWEVER SHE FATIGUES EASILY WITH MINIMAL ACTIVITY. VITAL SIGNS STABLE. STABLE AT TIME OF THIS NOTE
[2020-01-27 20:45] VITALS: BP 130/78
[2020-01-28 00:24] VITALS: BP 134/62
--- NOTE | 2020-01-28 03:47 | NUR ---
ASSUMED CARE OF PT A 2300. PT IS ALERT AND OREINTED. VSS. PERRLA. NO COMPLAINTS OF PAIN. PT IS VERY SOA WHEN SHE DOES NOT HAVE HER BIPAP ON. OR WITH ANY MOVEMENT. PT IS IN SINUS RYTHM ON THE TELEMETRY. PT IS RESTING COMFORTABLY IN BED. RESPIRATIONS ARE EVEN AND NONLABORED. WILL CONTINUE TO MONITOR PT.
[2020-01-28 04:00] VITALS: BP 120/40
[2020-01-28 05:18] LABS: ABSOLUTE BASOPHILS 0.1 thou/uL (0.0-0.2); ABSOLUTE LYMPHOCYTES 0.3 thou/uL (0.8-5.3); ABSOLUTE MONOCYTES 0.4 thou/uL (0.0-1.2); ABSOLUTE NEUTROPHILS 10.2 thou/uL (1.6-8.1); BASOPHILS 0.5 %; HEMATOCRIT 30.6 % (37.0-47.0); HEMOGLOBIN 10.5 gm/dL (12.0-15.0); LYMPHOCYTES 2.6 %; MCH 33.2 pg (26.0-34.0); MCHC 34.2 g/dL (28.0-37.0); MCV 97.2 fL (80.0-100.0); MONOCYTES 3.6 %; MPV 7.6 fl. (7.2-11.1); NUCLEATED RBCS 0 /100WBC; POLYS 93.3 %; RBC 3.15 mil/uL (4.20-5.00); RDW-CV 13.2 % (10.5-14.5); WBC 10.9 thou/uL (4.0-11.0)
[2020-01-28 05:21] LABS: CALCIUM 7.7 mg/dL (8.5-10.1); CREATININE 1.1 mg/dL (0.6-1.3); POTASSIUM 4.2 mmol/L (3.5-5.1)
[2020-01-28 05:23] LABS: PLATELET COUNT* 180 thou/uL (150-400)
[2020-01-28 08:15] VITALS: BP 122/62
[2020-01-28 12:00] VITALS: BP 160/65
[2020-01-28 16:02] VITALS: BP 112/71
--- NOTE | 2020-01-28 20:30 | NUR ---
PT HAS RESTED T/O DAY WITHOUT COMPLAINTS. O2 SAT AT 93% AFTER ALBUMIN/FUROSEMIDE TRANSFUSION ON 5L NC. SR/ST ON MONITOR. PT ANTICIPATES DC POSSIBLY TOMMORROW. WCTM
[2020-01-28 22:10] VITALS: BP 128/56
[2020-01-29 04:00] VITALS: BP 122/56
--- NOTE | 2020-01-29 07:04 | NUR ---
PATIENT SLEPT MOST OF THE NIGHT. IV ANTIBIOTICS WERE GIVEN ORDERED. PATIENT HAD NO COMPLAINTS OF PAIN. PATIENT REMAINS ON OXYGEN AT 5-6L. PATIENT COULD POSSIBLY GO HOME TODAY. WILL CONTINUE TO MONITOR.
[2020-01-29 07:13] LABS: WBC 12.4 thou/uL (4.0-11.0)
[2020-01-29 07:15] LABS: HEMATOCRIT 30.3 % (37.0-47.0); HEMOGLOBIN 10.1 gm/dL (12.0-15.0); MCH 32.7 pg (26.0-34.0); MCHC 33.4 g/dL (28.0-37.0); MCV 97.9 fL (80.0-100.0); NUCLEATED RBCS 0 /100WBC; PLATELET COUNT* 182 thou/uL (150-400); RBC 3.09 mil/uL (4.20-5.00); RDW-CV 13.4 % (10.5-14.5)
[2020-01-29 07:22] LABS: ALBUMIN 2.5 g/dL (3.4-5.0); CALCIUM 8.1 mg/dL (8.5-10.1); CREATININE 1.1 mg/dL (0.6-1.3); POTASSIUM 3.7 mmol/L (3.5-5.1); TOTAL BILIRUBIN 0.4 mg/dL (<0.1-1.0)
--- NOTE | 2020-01-29 07:25 | NUR ---
CHANGE OF SHIFT REPORT GIVEN PATIENT SEEN AT BEDSIDE SITTING AT EDGE OF BED ASSUMED PATIENT CARE
[2020-01-29 07:51] LABS: ABSOLUTE LYMPHOCYTES 0.6 thou/uL (0.8-5.3); ABSOLUTE MONOCYTES 0.4 thou/uL (0.0-1.2); ABSOLUTE NEUTROPHILS 11.4 thou/uL (1.6-8.1); ANISOCYTOSIS 1+; OVALOCYTES Occasional; PLATELET ESTIMATE ADEQUATE; POIKILOCYTOSIS 1+
[2020-01-29 08:00] VITALS: BP 152/80
--- NOTE | 2020-01-29 16:30 | NUR ---
PT.S O2 REQUIREMENT DOWN TO 3L/NC AT THIS TIME WITH QUICK DESATS WITH ACTIVITY. EXHIBITED DURING P.T. EVAL. REAMINS ON IV MEDS. CONTINUES TO WANT TO GO HOME WITH AT DISCHARGE.
[2020-01-29 17:04] VITALS: BP 119/55
[2020-01-29 20:00] VITALS: BP 127/51
[2020-01-30] VITALS: BP 127/54
[2020-01-30 05:19] VITALS: BP 134/52
[2020-01-30 06:41] LABS: ABSOLUTE LYMPHOCYTES 0.2 thou/uL (0.8-5.3); ABSOLUTE MONOCYTES 0.3 thou/uL (0.0-1.2); ABSOLUTE NEUTROPHILS 12.5 thou/uL (1.6-8.1); BASOPHILS 0.1 %; HEMATOCRIT 30.5 % (37.0-47.0); LYMPHOCYTES 1.7 %; MCH 32.5 pg (26.0-34.0); MCHC 32.9 g/dL (28.0-37.0); MCV 98.7 fL (80.0-100.0); MONOCYTES 2.5 %; MPV 7.7 fl. (7.2-11.1); NUCLEATED RBCS 0 /100WBC; PLATELET COUNT* 175 thou/uL (150-400); POLYS 95.7 %; RBC 3.08 mil/uL (4.20-5.00); RDW-CV 13.6 % (10.5-14.5); WBC 13.1 thou/uL (4.0-11.0)
--- NOTE | 2020-01-30 07:31 | NUR ---
PT IS ABLE TO COMMUNICATE HER NEEDS TO STAFF EFFECTIVELY. SHE HAS DENIED THE NEED FOR PAIN MEDICATION UP TO 0700 TODAY. SHE IS STILL QUITE SOA WHEN UP TO THE [facility]. PT DID WEAR HER BIPAP FOR APPROXIMATELY 4HRS OVERNIGHT. PICC IS PATENT UP TO 0700 TODAY.
[2020-01-30 07:35] LABS: CALCIUM 8.3 mg/dL (8.5-10.1); CREATININE 1.3 mg/dL (0.6-1.3); MAGNESIUM 2.3 mg/dL (1.8-2.4); POTASSIUM 3.8 mmol/L (3.5-5.1)
[2020-01-30 09:30] VITALS: BP 136/49
[2020-01-30 12:17] VITALS: BP 145/60
--- NOTE | 2020-01-30 14:00 | NUR ---
DISCUSSED WITH . PT.REQUIRING HIGH O2. [facility] REFERRAL FAXED TO [facility] [phone] TO SEE IF PT.WOULD QUALIFY FOR [facility].
[2020-01-30 15:20] VITALS: BP 155/68
--- NOTE | 2020-01-30 18:54 | NUR ---
PT AO X4 SITTING BEDSIDE EATING BREAKFAST AT TIME OF ASSESSMENT. PT STATES SHE IS A BIT UPSET THAT SHE MAY HAVE TO DISCHARGE TO SKILLED FACILITY INSTEAD OF HOME. SHE IS CONSIDERING GOING HOME WITH HOSPICE IF SHE CAN BECAUSE SHE IS CONTEMPLATING WHAT END OF LIFE IS WITH COPD. HE DAUGHTER CALLED THIS AFTERNOON UPSET, WANTING TO MAKE SURE ALL SERVICES HAVE BEEN CONSIDERED .PT IS IN [employer] MOST OF THE DAY, TALKING ON THE PHONE WITH FAMILY. IV ANTIBIOTICS PER PICC WITH OUT ISSUE. PT HFNC 15L.
[2020-01-30 20:00] VITALS: BP 154/71
[2020-01-31] VITALS (7 sets, daily range): BP systolic 103–142; BP diastolic 51–74
--- NOTE | 2020-01-31 03:05 | NUR ---
ASSUMED CARE OF PT AT 1900. PT IS ALERT AND ORIENTED. VSS. PERRLA. NO COMPLAINTS OF PAIN. O2 TITRATED DOWN TO 10 L. PT HAS BIPAP ON T/O THE NOC. PT IS IN SINUS RYTHM ON THE TELEMETRY. PT IS RESTING COMFORTABLY IN BED. WILL CONTINUE TO MONITOR PT.
[2020-01-31 06:50] LABS: ABSOLUTE BASOPHILS 0.1 thou/uL (0.0-0.2); ABSOLUTE LYMPHOCYTES 0.4 thou/uL (0.8-5.3); ABSOLUTE MONOCYTES 0.7 thou/uL (0.0-1.2); ABSOLUTE NEUTROPHILS 17.4 thou/uL (1.6-8.1); BASOPHILS 0.6 %; HEMATOCRIT 35.1 % (37.0-47.0); HEMOGLOBIN 11.6 gm/dL (12.0-15.0); MCH 32.6 pg (26.0-34.0); MONOCYTES 3.5 %; MPV 7.7 fl. (7.2-11.1); NUCLEATED RBCS 0 /100WBC; PLATELET COUNT* 230 thou/uL (150-400); POLYS 93.9 %; RBC 3.54 mil/uL (4.20-5.00); RDW-CV 13.9 % (10.5-14.5); WBC 18.5 thou/uL (4.0-11.0)
[2020-01-31 07:13] LABS: ALBUMIN 3.1 g/dL (3.4-5.0); CALCIUM 8.1 mg/dL (8.5-10.1); CREATININE 1.1 mg/dL (0.6-1.3); MAGNESIUM 2.2 mg/dL (1.8-2.4); POTASSIUM 3.9 mmol/L (3.5-5.1); TOTAL BILIRUBIN 0.5 mg/dL (<0.1-1.0); TOTAL PROTEIN 5.9 g/dL (6.4-8.2)
--- NOTE | 2020-01-31 18:44 | NUR ---
PT AO X4 LYING IN THE BED AT TIME OF ASSESSMENT. SHE IS ON 7L OXYGEN PER NC. SHE WENT FOR CT SCAN, GETTING IV ANTIBIOTICS, STEROIDS AND DIRUETICS PER EMAR. 2+PITTING EDEMA IN BLE. PT COUGH IS PRODUCTIVE AT TIMES. ALBUMIN ADMINISTERED PER EMAR. PT IS HOPING TO GO HOME IN A FEW DAYS STATING THAT SHE IS RECOVERING EASIER NOW THAN IN THE PAST FEW DAYS. SKIN IS BRUISED. PICC IN RUE.
--- NOTE | 2020-02-01 02:28 | NUR ---
ASSUMED CARE OF PT AT 1900. PT IS ALERT AND ORIENTED. VSS. PERRLA. NO COMPLAINTS OF PAIN. PT IS ON BIPAP AND TOLERATING WELL. PT ON 8 LITERS HIGH FLOW NASAL CANNULA WHEN NOT ON BIPAP. PT IS IN SINUS RYTHM ON THE TELEMETRY. PT IS RESTING COMFORTABLY IN BED. RESPIRATIONS ARE EVEN AND NONLABORED. WILL CONTINUE TO MONITOR PT.
[2020-02-01 04:00] VITALS: BP 127/56
[2020-02-01 08:00] VITALS: BP 139/65
[2020-02-01 12:00] VITALS: BP 128/56
--- NOTE | 2020-02-01 14:51 | NUR ---
NICK spoke with Hallie at [facility], they do not currently have any beds available, should have some early next week
[2020-02-01 16:01] VITALS: BP 123/48
[2020-02-01 18:21] LABS: HEMATOCRIT 33.7 % (37.0-47.0); HEMOGLOBIN 11.2 gm/dL (12.0-15.0); MCHC 33.3 g/dL (28.0-37.0); MCV 99.1 fL (80.0-100.0); MPV 7.9 fl. (7.2-11.1); NUCLEATED RBCS 0 /100WBC; PLATELET COUNT* 190 thou/uL (150-400); RDW-CV 13.9 % (10.5-14.5); WBC 19.9 thou/uL (4.0-11.0)
--- NOTE | 2020-02-01 18:29 | NUR ---
PT HAS HAD A GOOD DAY WITH ENJOYMENT OF SITTING IN FRONT OF WINDOW TO TALK TO SON WHO BROUGHT HER SOME HOMEMADE SOUP. PT WAS SITTING BEDSIDE FOR ASSESSMENT. AO X4. LUNGS DIMINISHED IN RT SIDE AND FINE CRACKLES IN THE LT WITH COUGH LESS FREQUENT. SHE IS VERY WINDED WITH SLIGHT EXERTION BUT IS RECOVERING MORE QUICKLY AND IS ENCOURAGED BY THAT. OXYGEN USE IS STABLE AT 7-8 L PER NC.
[2020-02-01 18:31] LABS: CALCIUM 8.2 mg/dL (8.5-10.1); CREATININE 1.1 mg/dL (0.6-1.3); MAGNESIUM 2.3 mg/dL (1.8-2.4); POTASSIUM 3.4 mmol/L (3.5-5.1)
[2020-02-01 19:23] LABS: ABSOLUTE LYMPHOCYTES 0.8 thou/uL (0.8-5.3); ABSOLUTE MONOCYTES 1.2 thou/uL (0.0-1.2); ABSOLUTE NEUTROPHILS 17.9 thou/uL (1.6-8.1); METAMYELOCYTES 1 %
[2020-02-01 19:24] LABS: PLATELET ESTIMATE ADEQUATE
[2020-02-01 20:10] VITALS: BP 136/39
[2020-02-01 23:27] VITALS: BP 125/48
--- NOTE | 2020-02-02 04:30 | NUR ---
PT SLEPT MOST OF SHIFT. ASSESSMENT DOCUMENTED. MEDS GIVEN PER E-MAR. PICC PATENT. PT ON 10L HIGH FLOW NC WHILE AWAKE AND BIPAP WHILE SLEEPING. PT UP TO BSC THIS SHIFT WITH ASSIST. ISOLATION MAINTAINED.
[2020-02-02 04:45] VITALS: BP 118/85
[2020-02-02 06:51] LABS: ABSOLUTE LYMPHOCYTES 0.2 thou/uL (0.8-5.3); ABSOLUTE MONOCYTES 0.4 thou/uL (0.0-1.2); BASOPHILS 0.2 %; HEMATOCRIT 30.4 % (37.0-47.0); HEMOGLOBIN 10.1 gm/dL (12.0-15.0); LYMPHOCYTES 1.6 %; MCH 33.2 pg (26.0-34.0); MCHC 33.2 g/dL (28.0-37.0); MCV 99.9 fL (80.0-100.0); MONOCYTES 3.5 %; MPV 7.8 fl. (7.2-11.1); NUCLEATED RBCS 0 /100WBC; PLATELET COUNT* 131 thou/uL (150-400); POLYS 94.7 %; RBC 3.05 mil/uL (4.20-5.00); RDW-CV 13.8 % (10.5-14.5); WBC 12.7 thou/uL (4.0-11.0)
[2020-02-02 07:03] LABS: MAGNESIUM 2.4 mg/dL (1.8-2.4); POTASSIUM 3.9 mmol/L (3.5-5.1)
[2020-02-02 08:00] VITALS: BP 123/59
[2020-02-02 11:36] VITALS: BP 141/64
[2020-02-02 16:00] VITALS: BP 135/52
[2020-02-02 20:50] VITALS: BP 139/62
[2020-02-03 03:59] VITALS: BP 123/51
--- NOTE | 2020-02-03 04:26 | NUR ---
PT SLEPT ON AND OFF THIS SHIFT. ASSESSMENT DOCUMENTED. MEDS GIVEN PER E-MAR. PICC PATENT. NO REPORTS OF PAIN THIS SHIFT. PT ON 10L HIGH FLOW NC. PT UP TO BSC WITH ASSIST.
[2020-02-03 07:13] LABS: ABSOLUTE LYMPHOCYTES 0.3 thou/uL (0.8-5.3); ABSOLUTE MONOCYTES 0.5 thou/uL (0.0-1.2); BASOPHILS 0.2 %; HEMATOCRIT 31.4 % (37.0-47.0); HEMOGLOBIN 10.4 gm/dL (12.0-15.0); LYMPHOCYTES 1.9 %; MCH 32.8 pg (26.0-34.0); MCHC 33.1 g/dL (28.0-37.0); MCV 99.1 fL (80.0-100.0); MONOCYTES 3.9 %; MPV 7.9 fl. (7.2-11.1); NUCLEATED RBCS 0 /100WBC; PLATELET COUNT* 119 thou/uL (150-400); RBC 3.17 mil/uL (4.20-5.00); RDW-CV 13.9 % (10.5-14.5); WBC 13.9 thou/uL (4.0-11.0)
[2020-02-03 07:28] LABS: ALBUMIN 3.3 g/dL (3.4-5.0); CREATININE 0.9 mg/dL (0.6-1.3); MAGNESIUM 2.3 mg/dL (1.8-2.4); POTASSIUM 4.1 mmol/L (3.5-5.1); TOTAL BILIRUBIN 0.6 mg/dL (<0.1-1.0); TOTAL PROTEIN 5.7 g/dL (6.4-8.2)
--- NOTE | 2020-02-03 07:45 | NUR ---
ASSUMED CARE OF PATIENT THIS MORNING FROM NIGHT NURSE. PT IS SITTING UP ON THE SIDE OF THE BED ON 10 L HFNC. SHE WAS EDUCATED ON POC, AND DISEASE PROCESS. BED IS IN THE LOWEST POSITION AND CALL LIGHT IS IN REACH. WILL CONTINUE TO MONITOR. BED ALARM IS ON.
[2020-02-03 08:00] VITALS: BP 148/70
[2020-02-03 12:00] VITALS: BP 152/75
[2020-02-03 16:00] VITALS: BP 154/103
[2020-02-03 20:30] VITALS: BP 146/56
[2020-02-04] VITALS: BP 132/62
[2020-02-04 04:00] VITALS: BP 125/93
--- NOTE | 2020-02-04 04:55 | NUR ---
PT SLEPT ON AND OFF THIS SHIFT. ASSESSMENT DOCUMENTED. MEDS GIVEN PER E-MAR. PICC PATENT. NO REPORTS OF PAIN THIS SHIFT. PT ON 8L NC THIS SHIFT. PT REFUSED BIPAP WHILE ASLEEP, STATING THAT IT DRIES HER MOUTH OUT TOO MUCH. PT UP TO BSC WITH ASSIST.
[2020-02-04 07:05] LABS: HEMATOCRIT 30.5 % (37.0-47.0); HEMOGLOBIN 10.3 gm/dL (12.0-15.0); MCH 33.6 pg (26.0-34.0); MCHC 33.8 g/dL (28.0-37.0); MCV 99.3 fL (80.0-100.0); MPV 8.1 fl. (7.2-11.1); NUCLEATED RBCS 0 /100WBC; PLATELET COUNT* 101 thou/uL (150-400); RBC 3.07 mil/uL (4.20-5.00); RDW-CV 14.3 % (10.5-14.5); WBC 13.2 thou/uL (4.0-11.0)
[2020-02-04 07:25] LABS: MAGNESIUM 2.1 mg/dL (1.8-2.4); POTASSIUM 3.8 mmol/L (3.5-5.1)
--- NOTE | 2020-02-04 07:46 | CON ---
[address] [address] CONSULTATION Name: ELISE SHER Room: [address] IN .R.#: [id number] Admission: 01/18/20 Attend Phys: Flor Sinclair MD Discharge: Date of : 42 Report #: [id number] THIS REPORT FOR: //name// cc: Chely Burch Linda J. DO ~ DATE OF SERVICE: 01/25/2020 REQUESTING PHYSICIAN: Mahin Teran MD INDICATION FOR CONSULTATION: [id number] hypoxemic respiratory failure secondary to COVID-19. HISTORY OF PRESENT ILLNESS: A 79-year-old female with past medical history includes a history of oxygen and prednisone dependent COPD. The patient is not known to be in a positive airway pressure therapy at home, also the patient has a history of significant sinus tachycardia and takes verapamil custodial at home for this reason. The patient is now here since 01/18/2020. She currently is on remdesivir. She has received 1 unit of convalescent plasma. Initially, she received azithromycin and ceftriaxone. She now is on vancomycin and meropenem. There is a progressive increase in her shortness of breath and oxygen needs. She baseline uses 3-3.5 liters. Currently, she is needing 10 liters to maintain O2 saturation in the low 90s. She has had fever and chills. She has had a cough, not much sputum. There is no chest pain. There is mild swelling of lower extremities. She does have significant anxiety. She has had a poor appetite. She says that she feels weak. REVIEW OF SYSTEMS: for 12 points is negative except as mentioned above. The patient does remain tachycardic still. PAST MEDICAL HISTORY: COPD, on oxygen and prednisone custodial, laparoscopic cholecystectomy, tonsillectomy, tubal ligation, TMJ surgery, sinus surgery, allergic rhinitis, osteoporosis. There is a recent echocardiogram. This shows a left ventricular ejection fraction normal at 60-65% with a pulmonary artery systolic of 28. SOCIAL HISTORY: There is an extensive history of smoking, discontinued now, unable to quantify exactly. CURRENT MEDICATIONS: List in [employer] reviewed. HOME MEDICATIONS: List also in [employer] reviewed. 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 FAMILY HISTORY: There [place] [address] CONSULTATION Name: CHRISTOSELISE CHAS Room: [address] IN [facility]#: [id number] Admission: 01/18/20 Attend Phys: Flor Sinclair MD Discharge: Date of : 42 Report #: [id number] ALLERGIES: SHE IS REPORTED TO HAS HAD NAUSEA AND VOMITING WITH AUGMENTIN; however, she is tolerating cephalosporins as well as meropenem without any problems. ALSO, IS REPORTED TO BE ALLERGIC TO SULFAMETHOXAZOLE. PHYSICAL EXAMINATION: GENERAL: She is alert, awake and oriented. She does appear to be anxious. VITAL SIGNS: Has a pulse of 105 and a blood pressure of 161/58, she is on 10 liters oxygen via nasal cannula. She is saturating around 94%. Her respiratory rate is elevated to 22, temperature is 37.1. HEENT: Head is normocephalic and atraumatic. NECK: Does not show raised JVP, asymmetry, mass or lymph nodes. CHEST: Symmetrical expansion on inspection and palpation. On auscultation, breath sounds are markedly decreased as well as bilaterally equal. No added sounds. HEART: Regular. There is a mild tachycardia. There is no murmur. ABDOMEN: Soft and nontender. EXTREMITIES: Lower extremities show trace edema, no calf tenderness. SKIN: Dry and intact. NEUROLOGICAL: Moves all extremities bilaterally equally and spontaneously with no focal deficit identified. The chest x-ray does show bilateral infiltrates. There is no increase in pulmonary vascular congestion. LABORATORY DATA: The patient's lab work is in [employer] and this is reviewed. ASSESSMENT AND PLAN: 1. Ebndt-tk-jdsddiw hypoxemic respiratory failure secondary to COVID-19. The patient is anxious; however, she is able to wear BiPAP while asleep, then this may be of benefit, I will request the same. Otherwise, she remains on a green high flow nasal cannula when awake. 2. COVID-19. I agree with remdesivir, follow LFTs. She has received 1 unit of convalescent plasma already. I will go ahead and give her 1 more unit. She does not appear to be significantly fluid overloaded at this time; however, she is not likely to be able to tolerate any fluid overload; therefore, we will go ahead and give her 20 of Lasix with convalescent plasma as needed, we can give her more, but we need to watch creatinine closely. 3. Pulmonary infiltrates. I agree with meropenem and vancomycin as currently prescribed. We do need to watch her creatinine closely. We will follow up troughs closely as well. 4. Chronic obstructive pulmonary disease exacerbation. Continue Solu-Medrol as currently prescribed. See discussion below regarding increasing her calcium channel ascencion. For now continued current nebulized bronchodilators. If her heart rate does improve, then I will consider adding an ipratropium and also increasing the dose of Xopenex or switching this over to albuterol. Continue [facility] [address] [place] [address] CONSULTATION Name: CHRISTOSELISEANABELA DOHERTY Room: [address] IN M.R.#: [id number] Admission: 01/18/20 Attend Phys: Flor Sinclair MD Discharge: Date of : 42 Report #: [id number] Brovana. Watch blood glucoses. 5. Anxiety/hypertension/longstanding history of sinus tachycardia. The patient is on verapamil 180 mg long-acting daily custodial at home. Her blood pressure is running on the higher side. This may improve if her calcium channel ascencion dose is increased. For now, I ordered verapamil dose to be increased, as the blood pressure is also high. In case, her blood pressure drops too low as a result, then suggest switching this over to diltiazem, which will reduce the heart rate more and not cause as much drop in blood pressure. 6. Evaluation for thromboembolic phenomena. The patient currently is on prophylactic dose Lovenox. The pulmonary artery systolic on the last echo was not elevated; however, COVID-19 is a hypercoagulable state; therefore, I recommend obtaining D-dimer. If this is elevated, then I will investigate further for thromboembolism. 7. Clostridium difficile prophylaxis. We will add Florastor. 8. Gastrointestinal prophylaxis. Already on Protonix. The patient is critically ill at this time. Total time spent providing critical care is 45 minutes. <ELECTRONICALLY SIGNED> By: Scott Robertson MD 02/04/20 0746 [id number] [id number] Robertson MD /nt
[2020-02-04 08:00] VITALS: BP 126/60
[2020-02-04 09:01] LABS: ABSOLUTE LYMPHOCYTES 0.5 thou/uL (0.8-5.3); ABSOLUTE MONOCYTES 0.7 thou/uL (0.0-1.2)
[2020-02-04 09:02] LABS: PLATELET ESTIMATE DECREASED
[2020-02-04 13:25] VITALS: BP 90/50
--- NOTE | 2020-02-04 14:30 | NUR ---
FAXED UPDATES TO [facility] THIS AM. SHE CALLED AT THIS TIME TO SAY THEY COULD ACCEPT PT.TODAY AFTER 1930. CALL FROM LINDA KHAN, PTS DAUGHTER. SHE WAS UPSET THAT NO DRChanellHAD CALLED HER OR BROTHER THE WHOLE TIME,PT.HAS BEEN IN HOSPITAL. EXPLAINED ONLY NAME ON EMERGENCY CONTACT WAS PTS . SHE SAID SHE HAD LEFT MESSAGES WITH THE NURSE. PT.GAVE PERMISSION FOR SON AND DAUGHTER TO BE GIVEN INFORMATION. PT.WAS NOT AGREEABLE TO GOING TO [facility]. 'ITS TOO FAR AWAY'. DOES NOT WANT SNF EITHER. NICK DISCUSSED WITH . ANOTHER COVID TEST WILL BE REPEATED (RAPID). IF NEG. REHAB CONSULT WILL BE PLACED. PT.AND DAUGHTER AGREEABLE TO THIS. ALSO CALLED DAUGHTER TO DISCUSS POC. LEFT MESSAGE WITH TAMMI ARIAS . SHE WILL INFORM PTS NURSE,CHERI OF NEED FOR ANOTHER COVID TEST. CM NOTIFIED [facility] PT.CHANGED HER MIND ABOUT [facility].
[2020-02-04 18:33] VITALS: BP 150/76
[2020-02-04 20:00] VITALS: BP 129/71
[2020-02-05] VITALS: BP 125/64
[2020-02-05 04:00] VITALS: BP 156/71
--- NOTE | 2020-02-05 06:06 | NUR ---
ASSUMED PT'S CARE @ 1900. ALERT AND ORIENTED. VSS ON 8L HFC. MEDS GIVEN PER EMAR. DENIES PAIN THIS SHIFT. NO BIPAP THIS SHIFT. RAPID COVID TEST STILL POSITIVE. UP INDEPEDENTLY TO BSC. ENCOURAGED TO CALL WHEN NEEDING ASSISTANCE. COFFEE PROVIDED PER PT'S REQUEST. WILL CONTINUE TO MONITOR.
[2020-02-05] MEDS ORDERED: TESSALON PERLE100 MG PO (06:44)
[2020-02-05] MEDS ORDERED: CARDIZEM CD120 MG PO (06:44)
[2020-02-05] MEDS ORDERED: ENOXAPARIN40 MG/0.1 SUBQ (06:44)
[2020-02-05] MEDS ORDERED: LEVALBUTER1.25 MG/0. INH (06:44)
[2020-02-05] MEDS ORDERED: SOLU-MEDRO40 MG/1 M2 IVPUSH (06:44)
[2020-02-05] MEDS ORDERED: ACETAMINOPHEN325 M1 PO (06:44)
[2020-02-05] MEDS ORDERED: PULMICORT0.5 MG/2 M INH (06:44)
[2020-02-05] MEDS ORDERED: CHEST CONGESTI400 MG PO (06:44)
[2020-02-05] MEDS ORDERED: FLORASTOR250 MG PO (06:44)
[2020-02-05] MEDS ORDERED: BROVANA15 MCG/2 M INH (06:44)
[2020-02-05] MEDS ORDERED: METOPROLOL5 MG/5 M2 IVPUSH (06:44)
[2020-02-05 08:00] VITALS: BP 134/63
--- NOTE | 2020-02-05 08:00 | NUR ---
ASSUMED CARE OF PATIENT THIS MORNING FROM NIGHT NURSE. PT IS DOING WELL WITH NO CO OF PAIN OR NAUSEA AT THIS TIME. SHE WAS EDUCATED ON POC AND USING THE CALL LIGHT FOR ASSISTANCE. POSSIBLE DISCHARGE TODAY. BED IS INTHE LOWEST POSITION AND CALL LIGH IS IN REACH. WILL CONITINUE TO MONITOR.
[2020-02-05 12:00] VITALS: BP 143/70
[2020-02-05 16:00] VITALS: BP 154/67
--- NOTE | 2020-02-05 17:00 | NUR ---
LEFT VM EARLIER FOR PTS SON,YESSICA AND DAUGHTER,LINDA. ASKED THEM TO RETURN MY CALL TO DISCUSS DISCHARGE PLANNING. PT.2ND COVID TEST WAS POSITIVE YESTERDAY. STILL ON HIGH O2 NEEDS. WOULD LIKE HER TO GO TO LT[facility]. OTHER OPTION WOULD BE HOME WITH 24/7 CARE AND HOME HEALTH. NO RETURN CALL YET. SPOKE WITH TAMMI JOINER. SHE SAID PT.REALLY DOES NOT WANT TO GO TO [facility] BUT IF SHE DID SHE WOULD WANT TO GO [facility]. CM WILL FOLLOW UP IN AM.
[2020-02-05 19:30] VITALS: BP 123/49
[2020-02-06 00:08] VITALS: BP 142/69
[2020-02-06 04:20] VITALS: BP 124/72
--- NOTE | 2020-02-06 04:42 | NUR ---
PT RESTING WELL THROUGHOUT HOURLY ROUNDS NSR ON CLINICAL RESOURCE NURSE UP TO BSC WITH SC ASSIST WILL REPORT ABNORMAL CHANGES.
--- NOTE | 2020-02-06 05:25 | NUR ---
ASSUMED CARE FROM DAY SHIFT , PT RESTING IN BED ALERT AND ORIENETD X3-4 , CHEST TUBE INPLACE, SAT 97 % WITH NC AT 15L AND NB MASK . CARDIAC SHOWS SR 88.PT DENIES PAIN AT REST. BLOODY DRAIAGE NOTED IN CHEST TUBE , NO LEAKNOTED NO SUBQ AIR NOTED AROUND CHEST TUBE. LUNG SOUND DECREASED IN BASES. WILL CONITNUE WITH CURRENT POC.
[2020-02-06 08:45] VITALS: BP 117/64
--- NOTE | 2020-02-06 09:00 | NUR ---
SPOKE WITH DAUGHTER,LINDA, ON PHONE. SHE WAS ASKING ABOUT DIFFERENT INPT.REHABS THAT MIGHT ACCEPT COVID POSITIVE PTS. [facility] ON TAKE THOSE PTS.THAT ARE IN THEIR HOSPITAL THAT ARE COVID POSITIVE. [facility] DOES NOT. [facility] DOES. SPOKE WITH [facility]/ADMISSIONS FOR REHAB [phone]. HE SAID THEY MOST LIKELY WON'T HAVE AN OPEN BED UNTIL TUESDAY/SAT. HE ASKED ME TO FAX INFORMATION TO HIM FOR REVIEW. FAXED TO [phone].
[2020-02-06 12:45] VITALS: BP 133/75
[2020-02-06 13:31] LABS: ABSOLUTE BASOPHILS 0.1 thou/uL (0.0-0.2); ABSOLUTE EOSINOPHILS 0.1 thou/uL (0.0-0.7); ABSOLUTE LYMPHOCYTES 0.5 thou/uL (0.8-5.3); ABSOLUTE NEUTROPHILS 18.3 thou/uL (1.6-8.1); BASOPHILS 0.6 %; EOSINOPHILS 0.3 %; HEMATOCRIT 37.2 % (37.0-47.0); HEMOGLOBIN 12.3 gm/dL (12.0-15.0); LYMPHOCYTES 2.3 %; MCH 32.8 pg (26.0-34.0); MCV 99.3 fL (80.0-100.0); MPV 8.5 fl. (7.2-11.1); NUCLEATED RBCS 0 /100WBC; PLATELET COUNT* 115 thou/uL (150-400); POLYS 91.8 %; RBC 3.74 mil/uL (4.20-5.00); RDW-CV 14.5 % (10.5-14.5); WBC 19.9 thou/uL (4.0-11.0)
[2020-02-06 13:41] LABS: CALCIUM 8.8 mg/dL (8.5-10.1); CREATININE 0.9 mg/dL (0.6-1.3); MAGNESIUM 2.1 mg/dL (1.8-2.4); POTASSIUM 4.4 mmol/L (3.5-5.1)
[2020-02-06 17:58] VITALS: BP 118/65
--- NOTE | 2020-02-06 18:30 | NUR ---
RECEIVED REPORT. ASSUMED CARE OF PT AROUND 0730. AM ASSESSMENT AND VITALS COMPLETED CHARTED. MEDS PER EMAR. SCOWMAN IN PLACE. FAMILY CALLED AND RECEIVED UPDATE. PLAN IS FOR PT TO DC TO REHAB TOMORROW OR . PT WITH GOOD APPETITE THIS SHIFT. TOLERATING DIET. UP TO BEDSIDE COMMODE TO VOID AND HAVE BM. PT CURRENTLY REST IN BED. CALL LIGHT IS WITHIN REACH. HOURLY ROUNDING PERFORMED. LOW FALL RISK PRECAUTIONS IN PLACE.
[2020-02-06 20:30] VITALS: BP 134/76
[2020-02-07 00:02] VITALS: BP 130/61
[2020-02-07 03:30] VITALS: BP 129/57
[2020-02-07 05:06] LABS: ABSOLUTE LYMPHOCYTES 0.2 thou/uL (0.8-5.3); ABSOLUTE MONOCYTES 0.4 thou/uL (0.0-1.2); ABSOLUTE NEUTROPHILS 12.4 thou/uL (1.6-8.1); BASOPHILS 0.2 %; HEMATOCRIT 30.3 % (37.0-47.0); HEMOGLOBIN 10.4 gm/dL (12.0-15.0); LYMPHOCYTES 1.5 %; MCH 33.7 pg (26.0-34.0); MCHC 34.2 g/dL (28.0-37.0); MCV 98.6 fL (80.0-100.0); MONOCYTES 2.9 %; MPV 8.2 fl. (7.2-11.1); NUCLEATED RBCS 0 /100WBC; PLATELET COUNT* 72 thou/uL (150-400); POLYS 95.4 %; RBC 3.08 mil/uL (4.20-5.00); RDW-CV 14.3 % (10.5-14.5)
[2020-02-07 05:29] LABS: ALBUMIN 2.7 g/dL (3.4-5.0); ALKALINE PHOSPHATASE 56 U/L (46-116); ANION GAP < 0 mmol/L (7-16); BUN 30 mg/dL (7-18); CALCIUM 7.9 mg/dL (8.5-10.1); CHLORIDE 93 mmol/L (98-107); CO2 38 mmol/L (21-32); CREATININE 0.9 mg/dL (0.6-1.3); GLUCOSE 130 mg/dL (70-99); POTASSIUM 4.2 mmol/L (3.5-5.1); SGOT 25 U/L (15-37); SGPT 44 U/L (30-65); SODIUM 130 mmol/L (136-145); TOTAL BILIRUBIN 0.5 mg/dL (<0.1-1.0); TOTAL PROTEIN 5.1 g/dL (6.4-8.2)
--- NOTE | 2020-02-07 06:45 | NUR ---
Alert and oriented x 4. She is getting up to the bedside commode and has voided adequately. She also had a small BM. It was observed that she has some open areas to sacrum and L buttocks. It looks excoriated and probably caused by not getting clean. Areas were cleaned, pictures in her chart and Duoderm dressing was applied. She has a PICC line to her rt upper arm and both lumens are patent and have good blood return. Both LE/s have edema 3+ including her feet and they are bruised looking. She is on O2 5L n/c and she tires easily. She slept intermittenly.
[2020-02-07 08:00] VITALS: BP 139/57
[2020-02-07 12:11] VITALS: BP 137/52
[2020-02-07 16:18] VITALS: BP 140/48
--- NOTE | 2020-02-07 16:30 | NUR ---
HEARD FROM [facility] EARLIER. HE SAID THEY ARE NOT HAVING MANY DISCHARGES EXPECTED. THEY HAVE TO TAKE THEIR OWN HOSPITAL PTS FIRST BEFORE OUTSIDERS. THEY DO NOT EXPECT A BED UNTIL NEXT WEEK SOMETIME. NICK CALLED DAUGHTER,LINDA, AND UPDATED HER. TOLD HER [facility] COVID POSITIVE [facility], [facility]. SHE SAID SHE WOULD TALK TO HER BROTHER BUT I COULD SEND TO [facility]. FAXED REFERRAL INFORMAITON TO [facility] ADMISSIONS [phone].
--- NOTE | 2020-02-07 16:45 | NUR ---
PT RESTING AT THIS TIME. COVID RAPID CAME BACK POSITIVE. MAY BE ABLE TO TRANSFER TO [facility] TOMORROW. VSS. SR ON MONITOR.WCTM
[2020-02-07 20:04] LABS: BE 11.8 mmol/L (-2 to +3); PCO2 VENOUS 53.2 mmHg (41.0-51.0); PO2 VENOUS 54.9 mmHg (35.0-45.0)
[2020-02-08 00:28] VITALS: BP 112/55
--- NOTE | 2020-02-08 03:47 | NUR ---
PT ALERT ORIENTED. O2 AT 5 LITERS NC. PT HOME O2 DOSE IS 4 LITERS NC. PT STATES I FEEL LESS SOB NOW THAN I HAVE BEEN. O2 SATS 95% TELEMETRY SHOWS SR. WCTM
[2020-02-08 05:07] VITALS: BP 128/51
[2020-02-08 05:55] LABS: ABSOLUTE LYMPHOCYTES 0.1 thou/uL (0.8-5.3); ABSOLUTE MONOCYTES 0.3 thou/uL (0.0-1.2); ABSOLUTE NEUTROPHILS 11.6 thou/uL (1.6-8.1); BASOPHILS 0.2 %; HEMATOCRIT 31.7 % (37.0-47.0); HEMOGLOBIN 10.7 gm/dL (12.0-15.0); MCH 33.3 pg (26.0-34.0); MCHC 33.6 g/dL (28.0-37.0); MONOCYTES 2.4 %; MPV 8.4 fl. (7.2-11.1); NUCLEATED RBCS 0 /100WBC; PLATELET COUNT* 76 thou/uL (150-400); POLYS 96.4 %; RDW-CV 14.5 % (10.5-14.5)
[2020-02-08 06:11] LABS: CALCIUM 7.7 mg/dL (8.5-10.1); CREATININE 0.9 mg/dL (0.6-1.3); MAGNESIUM 2.3 mg/dL (1.8-2.4); POTASSIUM 3.5 mmol/L (3.5-5.1)
[2020-02-08 09:00] VITALS: BP 142/83
[2020-02-08 11:44] VITALS: BP 120/47
--- NOTE | 2020-02-08 16:00 | NUR ---
[facility] CALLED THIS AM TO SAY THEY COULD MOST LIKELY ACCEPT PT.THIS AFTERNOON. SHE WOULD LET ME KNOW BY 1300. LEFT VM FOR DAUGHTER,LINDA ABOUT 1200 TO INFORM. CALL FROM [facility] ,STATING SHE HAD CALLED SON,YESSICA. HE WAS NOT IN FAVOR OF PT.GOING TO [facility]. NICK CALLED LINDA BACK. SHE SAID THEY WOULD RATHER PT.BE IN A HOSPITAL BASED REHAB, [facility] OR [facility]. [facility] WILL NOT HAVE BEDS UNTIL NEXT WEEK SOMETIME. CALLED [facility]. THEY DO NOT TAKE COVID POSITIVE PTS. CM SPOKE [facility]. PT.HAD ANOTHER COVID TEST PERFORMED TODAY AND WAS NEG. GAVE ORDER THAT PT.COULD MOVE OUT OF ISOLATION. NICK NOTIFIED [facility]. SHE SAID PT.COULD MOST LIKELY MOVE TO REHAB UNIT TUESDAY OR TUESDAY. SHE WILL CALL .
[2020-02-08 16:02] VITALS: BP 156/76
--- NOTE | 2020-02-08 16:39 | NUR ---
PT SON YESSICA CALLED INQUIRING WHY THE FAMILY HAS NOT BEEN KEPT IN THE LOOP ABOUT HIS MOTHER MOVING TO REHAB. I EXPAINED THAT THE PT IS AO X4 AND MAKES HER OWN DECISIONS AND THAT IN THE PRESENT PANDEMIC STAFF IS SPRED THIN AND UNABLE TO CALL WITH EVERY DETAIL OF THE PT CARE. I SUGGESTED THAT HE HAVE HIS MOTHER LET THE STAFF KNOW IF SHE WISHES TO HAVE THEM CONTACTED SINCE SHE IS ABLE TO MAKE HER OWN DECISIONS. I DID RECOMMEND TO HIM THAT I THINK THE PT WOULD BENEFIT FROM A CHANGE OF SCENERY AND THAT IT WOULD ENCOURAGE HER THAT SHE IS IN FACT GETTING BETTER. PT PAULINE JACKSON WAS NEGATIVE AND SHE HAD BEEN ACCEPTED TO OP REHAB.
--- NOTE | 2020-02-08 16:58 | NUR ---
PT RAPID COVID TODAY WAS NEGATIVE, CALL FROM SELENA Culp WITH REQUEST TO CALL DR MENA TO SEE IF HE IS OK TO DISCONTINUE ISOLATION FOR PT. IF HE IS PT COULD POSSIBLY GO TO REHAB ON TUESDAY PER SELENA Culp. DR MENA WAS OK WITH PT TO BE TRANSFERED TO TELE FLOOR FOR CARE.
[2020-02-08 19:50] VITALS: BP 123/57
[2020-02-09] VITALS: BP 150/64
[2020-02-09 04:00] VITALS: BP 137/70
[2020-02-09 04:24] LABS: HEMATOCRIT 32.8 % (37.0-47.0); MCH 32.8 pg (26.0-34.0); MCHC 33.6 g/dL (28.0-37.0); MCV 97.8 fL (80.0-100.0); MPV 9.1 fl. (7.2-11.1); NUCLEATED RBCS 0 /100WBC; PLATELET COUNT* 86 thou/uL (150-400); RBC 3.35 mil/uL (4.20-5.00); RDW-CV 14.4 % (10.5-14.5); WBC 18.4 thou/uL (4.0-11.0)
[2020-02-09 04:47] LABS: CALCIUM 8.6 mg/dL (8.5-10.1); CREATININE 1.1 mg/dL (0.6-1.3); MAGNESIUM 2.2 mg/dL (1.8-2.4); POTASSIUM 3.8 mmol/L (3.5-5.1)
--- NOTE | 2020-02-09 05:15 | NUR ---
PT AWAKE MOST OF SHIFT. ASSESSMENT DOCUMENTED. MEDS GIVEN PER E-MAR. PICC PATENT. NO REPORTS OF PAIN THIS SHIFT. PT SITTING ON SIDE OF BED MOST OF SHIFT. ISOLATION MAINTAINED.
[2020-02-09 06:38] LABS: ABSOLUTE LYMPHOCYTES 0.2 thou/uL (0.8-5.3); ABSOLUTE MONOCYTES 0.7 thou/uL (0.0-1.2); ABSOLUTE NEUTROPHILS 17.5 thou/uL (1.6-8.1)
[2020-02-09 06:39] LABS: ANISOCYTOSIS 1+; HYPOCHROMASIA 1+; PLATELET ESTIMATE DECREASED; POIKILOCYTOSIS 1+
--- NOTE | 2020-02-09 07:50 | NUR ---
ASSUMED CARE OF PATIENT THIS MORNING FROM NIGHT NURSE. PT IS DOING BETTER TODAY, AND SHOULD GO TO REHAB TOMORROW. PT HAS MILD CO FO DISCOMFORT AND PAIN FROM HER KAYA ARE. REDNESS, EXCORIATION, WOUNDS NOTED, DOCUMENTED AND PHOTGRAPHED, PHYSICAN NOTIFED, LALIWICK APPLIED. PT EDUCATED ON POC, FALL SAFETY, DISEASE PROCESS AND USING THE CALL LIGHT FOR ASSISTANCE. BED IN LOWEST POSITION AND CALL LIGHT IN REACH, WILL CONTINUE TO MONITOR.
[2020-02-09 08:00] VITALS: BP 120/50
[2020-02-09 11:24] VITALS: BP 117/41
[2020-02-09 16:36] VITALS: BP 131/70
[2020-02-09 20:00] VITALS: BP 121/59
[2020-02-10] VITALS: BP 129/59
[2020-02-10 04:00] VITALS: BP 148/52
[2020-02-10 05:47] LABS: HEMATOCRIT 29.4 % (37.0-47.0); HEMOGLOBIN 10.1 gm/dL (12.0-15.0); MCH 33.5 pg (26.0-34.0); MCHC 34.2 g/dL (28.0-37.0); MCV 97.8 fL (80.0-100.0); MPV 8.6 fl. (7.2-11.1); RBC 3.01 mil/uL (4.20-5.00); RDW-CV 14.7 % (10.5-14.5); WBC 14.6 thou/uL (4.0-11.0)
[2020-02-10 06:23] LABS: CALCIUM 7.4 mg/dL (8.5-10.1); CREATININE 0.9 mg/dL (0.6-1.3); MAGNESIUM 2.1 mg/dL (1.8-2.4); POTASSIUM 3.6 mmol/L (3.5-5.1)
--- NOTE | 2020-02-10 06:51 | NUR ---
Alert and oriented x 4. She was transferred from [facility] floor last evening. She tested negative for Covid on 02/07. She has a productive cough and chest ray said she has infiltrates and atelectasis in lower lobes,she has O2 at 5L n/c. She has LE edema and they are wrapped with kerlex and wraps. She has been incontinent and she has a purewick. She has open areas to her periarea and L buttocks, they are extremely painful to her,nystatin cream was applied and barrier cream. He cough seems to be worsening. She has not had much sleep.
[2020-02-10 08:00] VITALS: BP 117/55
--- NOTE | 2020-02-10 08:00 | NUR ---
ASSUMED CARE OF PATIENT THIS MORNING FROM NIGHT NURSE. PT IS DOING WELL TODAY AND WAS EDUCATED ON NEED FOR CALDERON CATH. SHE IS GETTING READY TO BE MOVED TO REHAB. PT WAS EDUCATED ON FALL SAFETY AND USING THE CALL LIGHT FOR ASSISTANCE. WILL CONTINUE TO MONITOR.
[2020-02-10 20:00] VITALS: BP 120/45
[2020-02-11 05:01] LABS: HEMATOCRIT 30.8 % (37.0-47.0); HEMOGLOBIN 10.5 gm/dL (12.0-15.0); MCH 33.7 pg (26.0-34.0); MCHC 34.1 g/dL (28.0-37.0); MCV 98.7 fL (80.0-100.0); MPV 8.2 fl. (7.2-11.1); RBC 3.12 mil/uL (4.20-5.00); RDW-CV 14.9 % (10.5-14.5); WBC 16.4 thou/uL (4.0-11.0)
[2020-02-11 06:52] LABS: CALCIUM 7.7 mg/dL (8.5-10.1); CREATININE 0.8 mg/dL (0.6-1.3); MAGNESIUM 2.1 mg/dL (1.8-2.4); POTASSIUM 3.9 mmol/L (3.5-5.1)
[2020-02-11] MEDS ORDERED: FLUCONAZOLE 10100 MG PO (07:23)
[2020-02-11] MEDS ORDERED: CHEST CONGESTI400 MG PO (07:23)
[2020-02-11] MEDS ORDERED: LASIX 40 MG TAB40 M1 PO (07:23)
[2020-02-11] MEDS ORDERED: DEXAMETHASONE 44 M1 PO (07:23)
--- NOTE | 2020-02-11 07:52 | NUR ---
ASSUMED PT CARE AT APPROX 1930. PT IS AWAKE AND ORIENTED X4. PT NOT IN DISTRESS, NO DESATURATIONS NOTED ON 4L OF O2/NC. PT DENIES PAIN. NO ACUTE CHANGES THIS SHIFT. CALL LIGHT WITHIN REACH. HOURLY ROUNDING DONE FOR PT SAFETY.HIGH FALL PREACUTIONS IN PLACE.
[2020-02-11 10:08] VITALS: BP 140/58
--- NOTE | 2020-02-11 11:11 | NUR ---
CM INFORMED DURING PRIME ROUNDING OF THE PLAN OF CARE FOR THE PT INCLUDING PLANNED [facility] CONSULT FOR ARU. PT MAY BE ABLE TO D/C TO ARU TODAY PENDING ARU PHYSICIANS DECISION. CM WILL REMAIN AVAILABLE TO ASSIST AND FOLLOW NEEDED.
[2020-02-11 12:01] VITALS: BP 127/48
[2020-02-11 15:53] VITALS: BP 139/67
--- NOTE | 2020-02-11 16:21 | NUR ---
Assumed pt care at approx. 0730. Pt is awake and oriented x4. No acute changes this shift. Call light is within reach. Hourly rounding done for pt. Pt up ad hanane. with assist x1. Poor appetite. Pt encouraged to drink protein drink every meal. Pt ate yogurt and approximately 240ml at lunch. Safety and Fall precautions implemented.
--- NOTE | 2020-02-11 16:47 | NUR ---
Pt A/Ox4. Order recieved to transfer pt. to in-house rehab in room 322. Report called into nurse Holguin. Pt transferred via bed with all belongings. Pt was thankful and in good spirits
== END 2020-02-11 16:45 | DRG 871 ==
LOC: M.ERS 15:58 → M.ORTHSURG 17:32 → M.2W 17:32 → M.TBA-ER 17:32 → M.ORTHSURG 18:36 → M.2W 02-09 18:30
PROVIDERS: Emergency Medicine Emergency Medical Services; Internal Medicine; Internal Medicine Critical Care Medicine; ADMIT Internal Medicine; ATTEND Internal Medicine
PROC: 5A0935A Assistance with Respiratory Ventilation, Less than 24 Consecutive Hours, High Flow/Velocity Cannula (ICD-10-PCS; principal; 2020-01-22)
PROC: 02HV33Z Insertion of Infusion Device into Superior Vena Cava, Percutaneous Approach (ICD-10-PCS; 2020-01-23)
PROC: XW033E5 Introduction of Remdesivir Anti-infective into Peripheral Vein, Percutaneous Approach, New Technology Group 5 (ICD-10-PCS; 2020-01-23)
PROC: XW13325 Transfusion of Convalescent Plasma (Nonautologous) into Peripheral Vein, Percutaneous Approach, New Technology Group 5 (ICD-10-PCS; 2020-01-23)
PROC: B548ZZA Ultrasonography of Superior Vena Cava, Guidance (ICD-10-PCS; 2020-01-23)
PROC: 5A0935A Assistance with Respiratory Ventilation, Less than 24 Consecutive Hours, High Flow/Velocity Cannula (ICD-10-PCS; 2020-01-23)
PROC: 5A0935A Assistance with Respiratory Ventilation, Less than 24 Consecutive Hours, High Flow/Velocity Cannula (ICD-10-PCS; 2020-01-24)
PROC: 5A0935A Assistance with Respiratory Ventilation, Less than 24 Consecutive Hours, High Flow/Velocity Cannula (ICD-10-PCS; 2020-01-25)
PROC: 5A0935A Assistance with Respiratory Ventilation, Less than 24 Consecutive Hours, High Flow/Velocity Cannula (ICD-10-PCS; 2020-01-26)
PROC: 5A0935A Assistance with Respiratory Ventilation, Less than 24 Consecutive Hours, High Flow/Velocity Cannula (ICD-10-PCS; 2020-01-27)
PROC: 5A0935A Assistance with Respiratory Ventilation, Less than 24 Consecutive Hours, High Flow/Velocity Cannula (ICD-10-PCS; 2020-01-29)
PROC: 5A09357 Assistance with Respiratory Ventilation, Less than 24 Consecutive Hours, Continuous Positive Airway Pressure (ICD-10-PCS; 2020-01-29)
PROC: 5A0935A Assistance with Respiratory Ventilation, Less than 24 Consecutive Hours, High Flow/Velocity Cannula (ICD-10-PCS; 2020-01-30)
PROC: 5A09357 Assistance with Respiratory Ventilation, Less than 24 Consecutive Hours, Continuous Positive Airway Pressure (ICD-10-PCS; 2020-01-30)
PROC: 5A09357 Assistance with Respiratory Ventilation, Less than 24 Consecutive Hours, Continuous Positive Airway Pressure (ICD-10-PCS; 2020-01-31)
PROC: 5A0935A Assistance with Respiratory Ventilation, Less than 24 Consecutive Hours, High Flow/Velocity Cannula (ICD-10-PCS; 2020-01-31)
PROC: 5A09357 Assistance with Respiratory Ventilation, Less than 24 Consecutive Hours, Continuous Positive Airway Pressure (ICD-10-PCS; 2020-02-01)
PROC: 5A0935A Assistance with Respiratory Ventilation, Less than 24 Consecutive Hours, High Flow/Velocity Cannula (ICD-10-PCS; 2020-02-01)
PROC: 5A0935A Assistance with Respiratory Ventilation, Less than 24 Consecutive Hours, High Flow/Velocity Cannula (ICD-10-PCS; 2020-02-02)
PROC: 5A09357 Assistance with Respiratory Ventilation, Less than 24 Consecutive Hours, Continuous Positive Airway Pressure (ICD-10-PCS; 2020-02-02)
PROC: 5A0935A Assistance with Respiratory Ventilation, Less than 24 Consecutive Hours, High Flow/Velocity Cannula (ICD-10-PCS; 2020-02-03)
PROC: 5A09357 Assistance with Respiratory Ventilation, Less than 24 Consecutive Hours, Continuous Positive Airway Pressure (ICD-10-PCS; 2020-02-04)
PROC: 5A0935A Assistance with Respiratory Ventilation, Less than 24 Consecutive Hours, High Flow/Velocity Cannula (ICD-10-PCS; 2020-02-05)
PROC: 5A0935A Assistance with Respiratory Ventilation, Less than 24 Consecutive Hours, High Flow/Velocity Cannula (ICD-10-PCS; 2020-02-06)
PROC: 5A0935A Assistance with Respiratory Ventilation, Less than 24 Consecutive Hours, High Flow/Velocity Cannula (ICD-10-PCS; 2020-02-08)
PROC: 5A0935A Assistance with Respiratory Ventilation, Less than 24 Consecutive Hours, High Flow/Velocity Cannula (ICD-10-PCS; 2020-02-10)
DX: A41.89 Other specified sepsis (principal); U07.1 COVID-19; J15.6 Pneumonia due to other Gram-negative bacteria; J12.89 Other viral pneumonia; J96.21 Acute and chronic respiratory failure with hypoxia; J44.1 Chronic obstructive pulmonary disease with (acute) exacerbation; J44.0 Chronic obstructive pulmonary disease with (acute) lower respiratory infection; E44.0 Moderate protein-calorie malnutrition; E87.1 Hypo-osmolality and hyponatremia; T50.1X5A Adverse effect of loop [high-ceiling] diuretics, initial encounter; F41.9 Anxiety disorder, unspecified; M81.0 Age-related osteoporosis without current pathological fracture; R65.11 Systemic inflammatory response syndrome (SIRS) of non-infectious origin with acute organ dysfunction; I87.8 Other specified disorders of veins; E87.6 Hypokalemia; Z68.30 Body mass index [BMI] 30.0-30.9, adult; Z90.49 Acquired absence of other specified parts of digestive tract; Z79.899 Other long term (current) drug therapy; Z88.1 Allergy status to other antibiotic agents; Z88.2 Allergy status to sulfonamides; Z87.891 Personal history of nicotine dependence; Y92.89 Other specified places as the place of occurrence of the external cause

== ENCOUNTER 2020-02-11 15:54 | Inpatient (IN) | payer MEDICARE, OTHER ==
[~2020-02-11] VITALS: Ht 160 cm; Wt 74.4 kg
[~2020-02-11 15:54] MED LIST changes: +ACETAMINOPHEN325 M1 PO; +BROVANA15 MCG/2 M INH; +CARDIZEM CD120 MG PO; +CHEST CONGESTI400 MG PO; +DEXAMETHASONE 44 M1 PO; +ENOXAPARIN40 MG/0.1 SUBQ; +FLORASTOR250 MG PO; +FLUCONAZOLE 10100 MG PO; +LASIX 40 MG TAB40 M1 PO; +LEVALBUTER1.25 MG/0. INH; +METOPROLOL5 MG/5 M2 IVPUSH; +PULMICORT0.5 MG/2 M INH; +SOLU-MEDRO40 MG/1 M2 IVPUSH; +TESSALON PERLE100 MG PO
[2020-02-11 18:21] VITALS: BP 118/82
--- NOTE | 2020-02-11 18:22 | NUR ---
HISTORY AND ASSESSMENT COMPLETE. O2 4LNC. CALDERON IN PLACE. PT A/O X4.
--- NOTE | 2020-02-11 19:35 | NUR ---
INCONTINENT OF MODERATE BM SOFT UNFORMED. KAYA CARE GIVEN. MOISTURE BARRIER APPLIED. KAYA AREA RED AND EXCORIATED AND VERY TENDER. CALDERON TO DEPENDENT DRAINAGE WITH YELLOW URINE. 0XYGEN NASAL CANNULA AT 4 LITERS. CALL LIGHT WIHIN REACH.
[2020-02-11 19:50] VITALS: BP 108/68
[2020-02-12 04:17] LABS: HEMATOCRIT 29.3 % (37.0-47.0); MCH 33.2 pg (26.0-34.0); MCHC 34.2 g/dL (28.0-37.0); MCV 97.1 fL (80.0-100.0); MPV 8.1 fl. (7.2-11.1); RBC 3.02 mil/uL (4.20-5.00); RDW-CV 15.4 % (10.5-14.5); WBC 14.3 thou/uL (4.0-11.0)
[2020-02-12 04:27] LABS: CALCIUM 7.8 mg/dL (8.5-10.1); CREATININE 0.9 mg/dL (0.6-1.3); POTASSIUM 3.9 mmol/L (3.5-5.1)
--- NOTE | 2020-02-12 05:00 | NUR ---
PATIENT SLEPT SOUNDLY FROM ABOUT 2000 TO 0000. THEN SAT UP IN BED FOR ABOUT A HOUR AND HAD A SNACK. AFTER THAT RESTED ON/OFF. AWAKENED BY COUGH PERIODICALLY. HAS SCHEDULED GUAFINISEN AND TESSALON PEARLES. HOURLY ROUNDING IN PROGRESS.
[2020-02-12 08:10] VITALS: BP 144/74
--- NOTE | 2020-02-12 13:11 | NUR ---
Nutrition: Pt admit to rehab. Reported UBW 140 lb, wt stable. Pt reported appetite as good, ate 75% of lunch. Wound on coccyx, not staged. Dexamethasone and other meds noted. Albumin 2.7, CO2 44, Na 126. Recent COVID+. Assessed at low nutrition risk.
--- NOTE | 2020-02-12 16:05 | NUR ---
WOUND NURSE: SALAS SEEN TO ADDRESS LESIONS ON BUTTOCK, GLUTEAL CREASE AND LABIA. LABIAL LESION PRESENTS A SHALLOW EROSION WITH YELLOW OPAQUE EXUDATE CRUSTED ONTO THE WOUND. THERE IS LOCALIZED REDNES AND INDURATION. WOUND IS PAINFUL PER THE PATIENT. CLEANSED WITH SOAP AND WATER, RINSED, PATTED DRY. OBTAINED AEROBIC SWAB C&S, THEN TREATED TOPICALLY WITH NO STING SKIN PREP. GLUTEAL CREASE FROM SACRUM TO ANUS PRESENTS A SUSPECTED DEEP TISSUE INJURY WITH SHALLOW EROSION EVIDENCED BY PURPLISH RED NONBLANCHEABLE DISCOLORATION. THIS MEASURES 5 X 3.5 X 0.1 CM. THER LEFT BUTTOCK ALSO WITH PURPLISH RED, NONBLANCHEABLE TISSUE AND SHALLOW EROSION MEASURES 3 X 3.5 X 0.1 CM. SALAS INSTRUCTED ON OFFLOADING WOUNDS AND SHE STATES SHE UNDERSTANDS. SUSECT THESE LESIONS WHICH PATIENT ADMITTED TO REHAB WITH ARE COVID 19 INFLUENCED AND MAY HAVE SUBSEQUENTLY BEEN UNAVOIDABLE.
--- NOTE | 2020-02-12 18:42 | NUR ---
PT. AOX4, VSS, DENIES PAIN, CALL LIGHT AND PERSONAL BELONGINGS PLACED WITHIN REACH. WOUND CARE BY DAMIAN, PT. ENCOURAGED TO OFFLOAD BACK FOR WOUND HEALING. YUMIKO PARRA. PT. IN BED, WATCHING TV, IN NO APPARENT DISTRESS, AT THIS TIME.
[2020-02-12 20:00] VITALS: BP 145/70
--- NOTE | 2020-02-13 04:13 | NUR ---
ASSUMED PT CARE AT 1930. PT ALERT AND ORIENTED X4, POLITE AND COOPERATIVE WITH CARES. PT INCONTIENT OF MODERATE SOFT, UNFORMED BM. PERICARE GIVEN. CALDERON TO DD DRAINING CLEAR, YELLOW URINE. DRESSINGS TO BUTTOCKS INTACT. PT C/O PAIN TO LABIAL WOUND, PRN TYLENOL GIVEN. ON 4L 02 PER NC. PT SLEPT MOST OF NIGHT. CALL LIGHT IN REACH, BED ALARM ON FOR SAFETY. HOURLY ROUNDING IN PROGRESS, WILL CONTINUE TO MONITOR.
[2020-02-13 04:41] LABS: HEMATOCRIT 27.4 % (37.0-47.0); HEMOGLOBIN 9.4 gm/dL (12.0-15.0); MCH 33.8 pg (26.0-34.0); MCHC 34.2 g/dL (28.0-37.0); MPV 7.8 fl. (7.2-11.1); RBC 2.77 mil/uL (4.20-5.00); RDW-CV 15.6 % (10.5-14.5); WBC 10.5 thou/uL (4.0-11.0)
[2020-02-13 05:39] LABS: CALCIUM 7.1 mg/dL (8.5-10.1); CREATININE 0.9 mg/dL (0.6-1.3); MAGNESIUM 1.8 mg/dL (1.8-2.4); POTASSIUM 3.1 mmol/L (3.5-5.1)
--- NOTE | 2020-02-13 08:03 | NUR ---
THE PATIENT NOTE FOR 02/13/20 AT 0730 SHOULD NOT BE UNDONE. THE TREATMENT OCCURRED BETWEEN [phone]
[2020-02-13 08:30] VITALS: BP 156/66
--- NOTE | 2020-02-13 18:18 | NUR ---
AM ASSESSMENT AND VITAL SIGNS COMPLETED DOCUMENTED. PT ATTEMPTED TO PARTICIPATE WITH ALL THERAPIES BUT SHE IS HAVING A LOT OF PAIN IN HER KAYA AREA AND FINDS IT DIFFICULT TO SIT IN THE CHAIR OR WHEELCHAIR. NEW ORDER RECEIVED FOR VICODIN AND IT WAS MORE EFFECTIVE THAN THE TYLENOL. FALL PRECAUTIONS AND HOURLY ROUNDING CONTINUE.
[2020-02-13 19:00] VITALS: BP 116/53
[2020-02-13 20:00] VITALS: BP 116/53
--- NOTE | 2020-02-14 04:42 | NUR ---
ASSUMED PT CARE AT 1930. PT ALERT AND ORIENTED X4, POLITE AND COOPERATIVE WITH CARES. CALDERON TO DD DRAINING CLEAR, YELLOW URINE. BUTTOCK AND LABIAL WOUNDS OPEN TO AIR. PT HAS NOT REQUIRED PRN PAIN MEDICATIONS THUSFAR THIS SHIFT. ON 4L 02 PER NC. PT HAS STRONG, PRODUCTIVE COUGH. PT SLEPT WELL OVERNIGHT. CALL LIGHT IN REACH, BED ALARM ON FOR SAFETY. HOURLY ROUNDING IN PROGRESS, WILL CONTINUE TO MONITOR.
[2020-02-14 07:30] VITALS: BP 134/59
--- NOTE | 2020-02-14 16:07 | NUR ---
INITIAL ASSESSMENT: PT ADMITTED TO THE IN REHAB UNIT ON 02/11/20 WITH A DIAGNOSIS OF DEBILITY POST COVID. PT A&O. PT NORMALLY INDEPENDENT WITH ADL'S, ACTIVE AND DRIVES. PT RESIDES AT HOME WIH SPOUSE. PT OWNS A ROLLATOR WALKER. PT HAS 0 HX OF HH OR SNF. CM WILL REMAIN AVAILABLE TO ASSIST AND FOLLOW NEEDED.
--- NOTE | 2020-02-14 16:28 | NUR ---
TEAM [facility] MEETING HELD YESTERDAY. PT INFORMED OF MEETING AND PLAN TO RE-TEAM AND FOR PT TO REMAIN ON THE UNIT AND CONTINUE THERAPIES FOR ANOTHER WEEK. PT IN AGREEMENT WITH THE PLAN. CM WILL REMAIN AVAILABLE TO ASSIST AND FOLLOW NEEDED.
[2020-02-14 19:40] VITALS: BP 133/62
--- NOTE | 2020-02-14 19:40 | NUR ---
AWAKENED FOR VITAL SIGNS AND REASSESSMENT. DENIES DISCOMFORT. OXYGEN AT 4 LITERS NASAL CANNULA. CALDERON TO DEPENDENT DRAINAGE WITH YELLOW URINE. CALL LIGHT WITHIN REACH.
[2020-02-15 04:28] LABS: CALCIUM 7.6 mg/dL (8.5-10.1); CREATININE 0.9 mg/dL (0.6-1.3); MAGNESIUM 1.8 mg/dL (1.8-2.4); POTASSIUM 3.5 mmol/L (3.5-5.1)
--- NOTE | 2020-02-15 05:31 | NUR ---
RESTED QUIETLY MOST OF THE NIGHT. UP X ONE DURING THE NIGHT TO THE BEDSIDE COMMODE. PATIENT THOUGHT SHE WAS GOING TO HAVE A BM BUT DIDN'T. PAIN MEDICATION GIVEN FOR COMPLAINT OF BOTTOM PAIN WITH RELIEF. HOURLY ROUNDING IN PROGRESS.
[2020-02-15 07:38] VITALS: BP 111/54
--- NOTE | 2020-02-15 18:12 | NUR ---
O2 4L NC. UP WITH STB ASSIST AND WALKER TO BSC. WORKED WITH THERAPIES. DAUGHTER AND HERE TO VISIT.
[2020-02-15 20:26] VITALS: BP 116/47
--- NOTE | 2020-02-15 21:45 | NUR ---
SITTING UP IN BED USING IPAD. PAIN MEDICATION GIVEN FOR COMPLAINT OF SORENESS ON BOTTOM. CALDERON TO DEPENDENT DRAINAGE WITH CLEAR/YELLOW URINE. OXYGEN AT 4 LITERS NASAL CANNULA. CALL LIGHT WITHIN REACH.
--- NOTE | 2020-02-16 05:37 | NUR ---
RESTED ON/OFF. KAYA CARE GIVEN. MOISTURE BARRIER APPLIED. HOURLY ROUNDING IN PROGRESS.
[2020-02-16 07:30] VITALS: BP 126/45
[2020-02-16 21:30] VITALS: BP 129/48
--- NOTE | 2020-02-17 04:40 | NUR ---
ASSUMED PT CARE AT 1930. PT ALERT AND ORIENTED X4, POLITE AND COOPERATIVE WITH CARES. PT ON 4L 02 PER NC. CALDERON TO DD, DRAINING CLEAR, YELLOW URINE. STOOL X1. PERICARE GIVEN. BUTTOCK AND LABIAL WOUNDS SULEIMAN. STRONG PRODUCTIVE COUGH. SLEPT WELL OVERNIGHT. CALL LIGHT IN REACH, BED ALARM ON FOR SAFETY. HOURLY ROUNDING IN PROGRESS, WILL CONTINUE TO MONITOR.
[2020-02-17 04:50] LABS: HEMATOCRIT 23.1 % (37.0-47.0); HEMOGLOBIN 8.1 gm/dL (12.0-15.0); MCH 34.6 pg (26.0-34.0); MCHC 34.9 g/dL (28.0-37.0); MCV 98.9 fL (80.0-100.0); MPV 7.1 fl. (7.2-11.1); NUCLEATED RBCS 0 /100WBC; PLATELET COUNT* 83 thou/uL (150-400); RBC 2.34 mil/uL (4.20-5.00); RDW-CV 15.8 % (10.5-14.5); WBC 3.9 thou/uL (4.0-11.0)
[2020-02-17 05:22] LABS: ALBUMIN 2.2 g/dL (3.4-5.0); CALCIUM 7.6 mg/dL (8.5-10.1); CREATININE 0.6 mg/dL (0.6-1.3); POTASSIUM 4.3 mmol/L (3.5-5.1); TOTAL BILIRUBIN 0.3 mg/dL (<0.1-1.0); TOTAL PROTEIN 4.8 g/dL (6.4-8.2)
[2020-02-17 10:04] LABS: ABSOLUTE LYMPHOCYTES 0.2 thou/uL (0.8-5.3); ABSOLUTE MONOCYTES 0.1 thou/uL (0.0-1.2); ABSOLUTE NEUTROPHILS 3.6 thou/uL (1.6-8.1); HYPOCHROMASIA 1+; METAMYELOCYTES 1 %; PLATELET ESTIMATE DECREASED; TOXIC GRANULATION 1+
[2020-02-17 20:14] VITALS: BP 120/61
--- NOTE | 2020-02-17 20:50 | NUR ---
SITTING UP IN BED AND WATCHING TV. DENIES DISCOMFORT. IN GOOD SPIRITS. CALDERON TO DEPENDENT DRAINAGE WITH YELLOW URINE. OXYGEN NASAL CANNULA AT FOUR LITERS. CALL LIGHT WITHIN REACH.
[2020-02-18 04:14] LABS: ALBUMIN 2.2 g/dL (3.4-5.0); CALCIUM 7.8 mg/dL (8.5-10.1); CREATININE 0.6 mg/dL (0.6-1.3); POTASSIUM 4.1 mmol/L (3.5-5.1); TOTAL BILIRUBIN 0.3 mg/dL (<0.1-1.0); TOTAL PROTEIN 4.9 g/dL (6.4-8.2)
--- NOTE | 2020-02-18 05:02 | NUR ---
RESTED ON/OFF. WOUNDS IN KAYA AREA CLEANSED WITH SOAP AND WATER. PICTURES TAKEN. SILVADENE CREAM APPLIED. THERE WAS A LARGE AMOUNT OF SEROSANGOUS DRAINAGE FROM WOUNDS ON KAYA PAD. HOURLY ROUNDING IN PROGRESS.
[2020-02-18 08:00] VITALS: BP 138/55
--- NOTE | 2020-02-18 15:17 | EKG ---
[place] [address] ELECTROCARDIOGRAM REPORT Name: ELISE SHER Room: [address] ADM IN M.R.#: [id number] Admission: 02/11/20 Attend Phys: Hesham Montalvo MD Discharge: Date of : 42 Date of Service: 02/18/20 1452 Report #: [id number] THIS REPORT FOR: //name// [facility] Test Date: 2020-02-18 Test Time: 14:52:22 Pat Name: ELISE SHER Department: Room: [address] Gender: F Android Ui Developer: : 1940 Requested By: Lazaro Merida Order Number: [id number] Jayme MD: Palomo Howard Measurements Intervals Turner Rate: 87 P: 83 SC: 147 QRS: 65 QRSD: 92 T: 57 QT: 331 QTc: 398 Interpretive Statements Sinus rhythm Compared to ECG 01/18/2020 16:17:59 Sinus tachycardia no longer present Electronically Signed On 02-18-2020 15:17:34 DIRECTOR DIGITAL COMMUNICATIONS by Palomo Howard [email or web address] <ELECTRONICALLY SIGNED> By: Palomo Howard MD, [facility] 02/18/20 1517 1452 1452 Palomo Howard MD, [facility] /EPI
--- NOTE | 2020-02-18 15:43 | NUR ---
PT WITH TACHYCARDIA THIS AM WHILE WORKING WITH PHYSICAL THERAPY. EKG DONE AND SHOWS NSR. INCREASED SHORTNESS OF AIR. DOPPLER OF BILATERAL LOWER EXTREMITES ORDERED. NEW TUBIGRIPS PROVIDED BY WOUND CARE. YUMIKO TO DD. WOUNDS TO BOTTOM AND KAYA AREA CLEANED AND MEDICATION PUT ON. O2 4LNC. PRN PAIN MEDICATION GIVEN PER PT REQUESTS.
[2020-02-18 19:00] VITALS: BP 110/46
[2020-02-19 04:32] LABS: ABSOLUTE LYMPHOCYTES 0.3 thou/uL (0.8-5.3); ABSOLUTE MONOCYTES 0.2 thou/uL (0.0-1.2); ABSOLUTE NEUTROPHILS 2.9 thou/uL (1.6-8.1); EOSINOPHILS 1.3 %; HEMATOCRIT 25.7 % (37.0-47.0); MCH 34.4 pg (26.0-34.0); MCHC 35.2 g/dL (28.0-37.0); MCV 97.9 fL (80.0-100.0); MONOCYTES 5.5 %; MPV 6.9 fl. (7.2-11.1); NUCLEATED RBCS 0 /100WBC; PLATELET COUNT* 129 thou/uL (150-400); POLYS 83.2 %; RBC 2.63 mil/uL (4.20-5.00); RDW-CV 16.2 % (10.5-14.5); WBC 3.5 thou/uL (4.0-11.0)
[2020-02-19 04:55] LABS: ALBUMIN 2.4 g/dL (3.4-5.0); CALCIUM 8.2 mg/dL (8.5-10.1); CREATININE 0.8 mg/dL (0.6-1.3); POTASSIUM 4.5 mmol/L (3.5-5.1); TOTAL BILIRUBIN 0.5 mg/dL (<0.1-1.0); TOTAL PROTEIN 5.6 g/dL (6.4-8.2)
--- NOTE | 2020-02-19 05:53 | NUR ---
ASSUMED CARES AT 1920. ALERT AND ORIENTED. O2 4L NC. PRODUCTIVE COUGH AT TIMES. MIN ASSIST WITH GAIT BELT. UP TO BSC FOR BM. CALDERON CATHETER DD YELLOW URINE. CREAM APPLIED TO SORES TO PERIANAL AND LABIA AREAS. AREAS ARE EXTREMELY PAINFUL TO TOUCH FOR PT. PAIN MEDS GIVEN NEEDED. PT TURNED SELF ONTO SIDE IN BED. ENCOURAGED TO STAY OFF BOTTOM. SLEPT OFF AND ON. CALL LIGHT IN REACH AND BED ALARM ON.
[2020-02-19 07:30] VITALS: BP 135/63
--- NOTE | 2020-02-19 15:25 | NUR ---
CM SPOKE TO THE PT TO DISCUSS ANY QUESTIONS OR CONCERNS THAT SHE MAY HAVE FOR TOMORROW'S TEAM CONFRENCE MEETING. PT HAS NO QUESTIONS OR CONCERNS. CM AND PHYSICIAN TO F/U WITH PT AFTER THE MEETING.
--- NOTE | 2020-02-19 15:32 | NUR ---
WOUND NURSE: RECEIVED A CALL FROM NAOMI, NURSE CARING FOR PATIENT, TO FOLLOW UP WITH PATIENTS'S WOUNDS ON INTERGLUTEAL CLEFT AND ON LEFT LABIA. THE WOUNDS ON INTERGLUTEAL CLEFT PRESENT SHALLOW LESIONS WITH FULL THICKNESS TISSUE LOSS AND EXTENDING FROM THE SACRUM TO AND AROUND THE ANAL ORIFACE. WILL REQUEST CONSULT WITH DR. DESIRE DO. CURRENTLY BEING TREATED WITH SILVADENE UP TO TID TO THE AFFECTED AREA. PATIENT REPORTS THIS IS PAINFUL TO TOUCH. ALSO HAS LESION ON THE LEFT LABIA WHICH PRESENTS SHALLOW EROSION. PATIENT REPORTS THAT THESE LESIONS ARE LESS PAINFUL, BUT STILL IS AN ISSUE FOR HER. PATIENT BEING TREATED WITH BACITRACIN TO TIS AREA. WILL NOT MAKE FURTHER CHANGES TO WOUND CARE AT THIS TIME AND HAVE DR. PHIPPS SEE PATIENT TOMORROW.
--- NOTE | 2020-02-19 16:00 | NUR ---
PT WORKED WITH THERAPIES. TACHYCARDIC THIS AM. CARDIOLOGY CONSULT ORDERED AND THEY SAW HER. NEW WOUND CARE ORDERS. SEE CHART. SURGICAL CONSULT ORDERED FOR WOUNDS. O2 4LNC. PT BECOMES VERY SOA WITH EXERTION. UP WITH ASSIST AND WALKER. PRN PAIN MEDICATION DOSAGE INCREASED. PRN PAIN MEDICATION GIVEN PER PT REQUEST. PT TEARFUL THIS AFTERNOON AFTER WOUNDS WERE CLEANED. REASSURANCE GIVEN.
[2020-02-19 19:00] VITALS: BP 142/52
[2020-02-20 04:32] LABS: HEMATOCRIT 21.9 % (37.0-47.0); HEMOGLOBIN 7.7 gm/dL (12.0-15.0); MCHC 34.9 g/dL (28.0-37.0); MCV 97.5 fL (80.0-100.0); MPV 6.7 fl. (7.2-11.1); RBC 2.25 mil/uL (4.20-5.00); RDW-CV 16.3 % (10.5-14.5); WBC 3.3 thou/uL (4.0-11.0)
[2020-02-20 04:45] LABS: CALCIUM 7.8 mg/dL (8.5-10.1); CREATININE 0.9 mg/dL (0.6-1.3); POTASSIUM 4.1 mmol/L (3.5-5.1)
--- NOTE | 2020-02-20 05:15 | NUR ---
ASSUMED CARE AT 1920. ALERT AND ORIENTED. PLEASANT. C/O PAIN TO SORES ON BUTTOCKS AND LABIA. PAIN MEDS GIVEN. O2 4L NC. CALDERON CATHETER DD YELLOW URINE. BLE EDEMA 3+. PT REQUESTED TO KEEP TUBIGRIPS ON OVERNIGHT. SLEPT BETTER. CALL LIGHT IN REACH AND BED ALARM ON.
[2020-02-20 08:00] VITALS: BP 129/46
--- NOTE | 2020-02-20 16:20 | NUR ---
WOUND NURSE: PATIENT WAS SEEN BY DR. PHIPPS THIS MORNING.
--- NOTE | 2020-02-20 18:40 | NUR ---
ASSESSMENT COMPLETED DOCUMENTED THIS MORNING. PATIENT CONTINUES TO PROGRESS VERY SLOWLY WITH THERAPIES. O2 AT 4LPM/NC AND INCREASED SOA WITH ANY ACTIVITY. NEW ORDER FOR LIDOCAINE GEL ON SACRAL WOUND RECD AND WAS STARTED THIS AFTERNOON...PATIENT STATED IT FEELS SO MUCH BETTER. CALDERON CATH PATENT WITH DARK JOSH URINE.
[2020-02-20 20:00] VITALS: BP 144/58
[2020-02-20 22:01] LABS: URINE BILIRUBIN NEGATIVE (Negative); URINE BLOOD 3+ (Negative); URINE COLOR YELLOW; URINE GLUCOSE-RANDOM NEGATIVE (Negative); URINE KETONES NEGATIVE (Negative); URINE LEUKOCYTES-REFLEX NEGATIVE (Negative); URINE NITRITE-REFLEX NEGATIVE (Negative); URINE PROTEIN 1+ (Negative); URINE SPECIFIC GRAVITY 1.015 (1.005-1.030); URINE UROBILINOGEN 0.2 E.U./dl (0.2-1.0)
[2020-02-20 22:02] LABS: URINE CLARITY SL HAZY
[2020-02-20 22:04] LABS: BACTERIA-REFLEX None Seen /HPF (None Seen); CASTS None Seen /LPF (None Seen); CRYSTALS None Seen /LPF (None Seen); MUCUS 0-3 Light strn/LPF (None Seen); SQUAMOUS 0-3 Few /LPF (0-3); URINE RBC >20 Many /HPF (0-2); URINE WBC-REFLEX None Seen /HPF (0-5)
--- NOTE | 2020-02-21 01:58 | NUR ---
ASSUMED CARE AT 1920. PATIENT RESTING IN BED. C/O NEEDING TO HAVE BM. ATTEMPTED TWICE PER BSC BEFORE SHE HAD IT. SLIGHT LEAKAGE OF STOOL ONCE. PERICARE DONE, OINTMENTS AND LIDOCAINE APPLIED. TAKES PILLS ONE AT A TIME WITH WATER. O2 4L/NC. CALDERON DRAINING JOSH URINE. TEMP 101.2, TAKEN MULTIPLE TIMES. PHYSICIAN NOTIFIED, NEW ORDERS RECEIVED. U/A PER CALDERON SENT, BLOOD CULTURES OBTAINED. NEW ABX GIVEN AFTER BOTH SENT TO LAB. MORE LABS SCHEDULED FOR AM. TEMP 99.3 AT 2140, 98.6 AT 2230, 98.7 AT 0112. NO FURTHER C/O PAIN. GIVEN APAP WITH HS MEDS. CALL LITE IN REACH. BED ALARM ON. HOURLY ROUNDS CONTINUE.
[2020-02-21 04:32] LABS: ABSOLUTE LYMPHOCYTES 0.4 thou/uL (0.8-5.3); ABSOLUTE MONOCYTES 0.2 thou/uL (0.0-1.2); ABSOLUTE NEUTROPHILS 2.7 thou/uL (1.6-8.1); BASOPHILS 0.3 %; EOSINOPHILS 0.5 %; HEMATOCRIT 22.4 % (37.0-47.0); HEMOGLOBIN 7.7 gm/dL (12.0-15.0); MCH 33.9 pg (26.0-34.0); MCHC 34.6 g/dL (28.0-37.0); MCV 97.8 fL (80.0-100.0); MONOCYTES 6.2 %; MPV 6.7 fl. (7.2-11.1); NUCLEATED RBCS 0 /100WBC; PLATELET COUNT* 152 thou/uL (150-400); RBC 2.29 mil/uL (4.20-5.00); RDW-CV 16.1 % (10.5-14.5); WBC 3.3 thou/uL (4.0-11.0)
[2020-02-21 04:50] LABS: ALBUMIN 2.1 g/dL (3.4-5.0); CALCIUM 7.7 mg/dL (8.5-10.1); CREATININE 0.8 mg/dL (0.6-1.3); POTASSIUM 3.8 mmol/L (3.5-5.1); TOTAL BILIRUBIN 0.4 mg/dL (<0.1-1.0); TOTAL PROTEIN 5.3 g/dL (6.4-8.2)
[2020-02-21 08:00] VITALS: BP 116/45
[2020-02-21 10:44] LABS: % SATURATION 15 % (20-39); IRON 27 ug/dL (50-175)
--- NOTE | 2020-02-21 14:06 | NUR ---
TEAM CONFRENCE MEETING HEL YESTERDAY. PT INFORMED OF MEETING AND PLAN TO RE-TEAM. PT IN AGREEMENT. CM WILL REMAIN AVAILABLE TO ASSIST AND FOLLOW NEEDED.
--- NOTE | 2020-02-21 16:51 | NUR ---
AM ASSESSMENT AND VITAL SIGNS COMPLETED DOCUMENTED. PT WORKS WITH OT, PT AND ST BUT HAS VERY LOW ENDURANCE AND DESATS WITH ACTIVITY. KAYA CARE PROVIDED WITH EACH INCONTINENT BOWEL MOVEMENT AND CALDERON CATH REMAINS IN PLACE FOR WOUND HEALING. FALL PRECAUTIONS AND HOURLY ROUNDING IN PLACE.
[2020-02-21 20:00] VITALS: BP 98/37
[2020-02-22 04:18] VITALS: BP 142/71
--- NOTE | 2020-02-22 04:46 | NUR ---
ASSUMED CARES AT 1920. ALERT AND ORIENTED. PLEASANT. SORENESS TO BOTTOM. CALDERON CATHETER DD JOSH URINE. O2 4L NC. PT AWOKE AT 0400 IN PANIC AND FELT SHORT OF BREATH. BP: 142/71, HR: 118, RR: 22, T: 99.5, O2 SAT 92%. DENIED ANY CHEST PAIN OR DIZZINESS. PT FELT BETTER AFTER SHORT TIME AND PRN NEB TX GIVEN. HAD SLEPT OTHERWISE. WILL CONTINUE TO MONITOR.
[2020-02-22 05:15] LABS: ABSOLUTE LYMPHOCYTES 0.4 thou/uL (0.8-5.3); ABSOLUTE MONOCYTES 0.3 thou/uL (0.0-1.2); ABSOLUTE NEUTROPHILS 2.8 thou/uL (1.6-8.1); BASOPHILS 0.2 %; EOSINOPHILS 0.6 %; HEMATOCRIT 22.8 % (37.0-47.0); HEMOGLOBIN 7.9 gm/dL (12.0-15.0); LYMPHOCYTES 10.7 %; MCH 33.3 pg (26.0-34.0); MCHC 34.7 g/dL (28.0-37.0); MCV 95.8 fL (80.0-100.0); MONOCYTES 7.5 %; NUCLEATED RBCS 0 /100WBC; PLATELET COUNT* 173 thou/uL (150-400); RBC 2.38 mil/uL (4.20-5.00); RDW-CV 15.5 % (10.5-14.5); WBC 3.5 thou/uL (4.0-11.0)
[2020-02-22 05:53] LABS: ALBUMIN 2.2 g/dL (3.4-5.0); CALCIUM 7.3 mg/dL (8.5-10.1); CREATININE 0.8 mg/dL (0.6-1.3); POTASSIUM 4.1 mmol/L (3.5-5.1); TOTAL BILIRUBIN 0.3 mg/dL (<0.1-1.0); TOTAL PROTEIN 4.9 g/dL (6.4-8.2)
[2020-02-22 08:00] VITALS: BP 118/55
[2020-02-22 19:45] VITALS: BP 132/55
--- NOTE | 2020-02-22 20:00 | NUR ---
INCONTINENT OF MODERATE BM. KAYA CARE GIVEN. CALDERON TO DEPENDENT DRAINAGE WITH JOSH URINE. PAIN MEDICATION GIVEN FOR COMPLAINT OF SORE BOTTOM. OXYGEN NASAL CANNULA AT FOUR LITERS.
--- NOTE | 2020-02-23 05:11 | NUR ---
HAD A GOOD NIGHT REST. PAIN MEDICATION GIVEN WITH RELIEF. IN GOOD SPIRITS THIS MORNING. SMILING. HOURLY ROUNDING IN PROGRESS.
[2020-02-23 07:38] VITALS: BP 119/48
--- NOTE | 2020-02-23 16:08 | NUR ---
O2 4L NC. INCREASED SHORTNESS OF AIR WITH ANY EXERTION. UP WITH STB ASSIST TO BSC. WOUND CARE GIVEN. YUMIKO MARSH DD. HERE TO VISIT FOR PT'S BIRTHDAY.
[2020-02-23 19:00] VITALS: BP 128/66
--- NOTE | 2020-02-23 20:40 | NUR ---
RESTING QUIETLY IN BED. OXYGEN NASAL CANNULA AT 4 LITERS. PAIN MEDICATION GIVEN FOR COMPLAINT OF SORE BOTTOM. KAYA CARE GIVEN. CALDERON TO DEPENDENT DRAINAGE WITH JOSH URINE. CALL LIGHT WITHIN REACH.
--- NOTE | 2020-02-24 05:14 | NUR ---
RESTED QUIETLY. TURNS SELF IN BED. PAIN MEDICATION GIVEN FOR COMPLAINT OF SORE BOTTOM WITH RELIEF. HOURLY ROUNDING IN PROGRESS.
[2020-02-24 07:17] VITALS: BP 130/52
[2020-02-24 15:57] LABS: HEMATOCRIT 24.3 % (37.0-47.0); HEMOGLOBIN 8.2 gm/dL (12.0-15.0); MCH 33.2 pg (26.0-34.0); MCHC 33.6 g/dL (28.0-37.0); MCV 98.8 fL (80.0-100.0); MPV 6.6 fl. (7.2-11.1); RBC 2.45 mil/uL (4.20-5.00); RDW-CV 16.3 % (10.5-14.5); WBC 4.7 thou/uL (4.0-11.0)
--- NOTE | 2020-02-24 16:03 | NUR ---
O2 4L NC. EXTREME SHORTNESS OF AIR WITH ANY ACTIVITY. PRN PAIN MEDICATION GIVEN PER PT REQUEST. UP TO BSC WITH STB ASSIST AND WALKER. KAYA CARE AND WOUND CARE GIVEN.
[2020-02-24 16:10] LABS: ALBUMIN 2.3 g/dL (3.4-5.0); CALCIUM 8.3 mg/dL (8.5-10.1); CREATININE 0.8 mg/dL (0.6-1.3); MAGNESIUM 1.9 mg/dL (1.8-2.4); POTASSIUM 3.7 mmol/L (3.5-5.1); TOTAL BILIRUBIN 0.3 mg/dL (<0.1-1.0); TOTAL PROTEIN 5.3 g/dL (6.4-8.2)
[2020-02-24 20:00] VITALS: BP 116/51
--- NOTE | 2020-02-25 05:29 | NUR ---
ASSUMED CARE AT 1920. ALERT AND ORIENTED. PLEASANT. C/O PAIN TO BUTTOCK. PAIN MEDS GIVEN NEEDED. O2 4L NC. HEATING PAD TO BACK. CALDERON CATHETER DD DARK YELLOW URINE. NEW IV SALINE LOCK PLACED TO RIGHT FOREARM. PT LAYS ON SIDES. CALL LIGHT IN REACH AND BED ALARM ON.
[2020-02-25 08:08] VITALS: BP 140/57
--- NOTE | 2020-02-25 13:40 | NUR ---
WOUND NURSE: PATIENT'S PHYSICIAN, DR. HAMILTON, RECOMMENDING LOW AIRLOSS MATTRESS, BUT PATIENT NOT MEETING CRITERIA -- MILES SCALE IS 18 WHEN CHECKED TODAY BY THIS NURSE. PATIENT REPORTS SHE IS REPOSITION ING IN BED BY HERSELF FROM SIDE TO SIDE AND RARELY LAYS ON HER BACK. EXPLAINED THAT OFF LOADING BY REPOSITIONING SIDE TO SIDE IS THE BEST INTERVENTION, AND PATIENT REPORTS SHE DOES. PATIENT HAS WAFFLE CUSHION IN HER CHAIR. LOW AIRLOSS MATTRESS OFFERED TO PATIENT AND SHE SAID NO. PT WAS PRESENT. THIS WAS CONVEYED TO THE NURSING VICE PRESIDENT OF BUSINESS DEVELOPMENT. EXPLAINED TO PATIENT THAT I CAN REEVALUATE IF SHE CHANGES HER MIND.
--- NOTE | 2020-02-25 15:22 | NUR ---
CM SPOKE TO THE PT TO DISCUSS ANY QUESTIONS OR CONCERNS THAT SHE MAY HAVE FOR THIS WEEKS TEAM CONFRENCE MEETING. PT INFORMS THAT SHE IS CONCERNED ABOUT THE CALDERON CATH AND WHEN IT WILL BE TAKEN OUT. CM RECIEVED A CALL FROM PT'S DTR AND SHE EXPRESSED CONCERN ABOUT PT'S PROGRESS AND HER ABILITY TO RECOVER. PT'S DTR INFORMS THAT THEY DO NOT DESIRE TO HAVE THE PT GO O SNF AT D/C AND WANT HER TO COME HOME. PT'S DTR INFORMS THAT SHE HAS LOOKED INTO PRIVATE DUTY CARE AND HAVE NURSES IN THE FAMILY AND WILL FIND A NOHEMI TO WORK IT OUT IF SHE NEEDS 24/7 CARE AT HOME. CM AND PHYSICIAN WILL F/U WITH PT AND HER DTR TO DISCUSS TEAM CONFRENCE MEETING ON TUESDAY. CM WILL REMAIN AVAILABLE TO ASSIST AND FOLLOW NEEDED.
--- NOTE | 2020-02-25 15:59 | NUR ---
O2 4LNC. BECOMES SHORT OF AIR WITH EXERTION. WORKED WITH THERAPIES. UP TO WHEELCHAIR. UP WITH WALKER AND MIN TO STB ASSIST. PRN PAIN MEDICATION GIVEN PER PT REQUEST. SEEN BY WOUND CARE NURSE. WOUND CARE PROVIDED.
[2020-02-25 20:00] VITALS: BP 145/56
[2020-02-26 04:24] LABS: HEMATOCRIT 21.4 % (37.0-47.0); HEMOGLOBIN 7.5 gm/dL (12.0-15.0); MCH 33.7 pg (26.0-34.0); MCV 96.4 fL (80.0-100.0); MPV 6.4 fl. (7.2-11.1); RBC 2.22 mil/uL (4.20-5.00); RDW-CV 16.3 % (10.5-14.5); WBC 5.4 thou/uL (4.0-11.0)
[2020-02-26 04:58] LABS: CALCIUM 7.9 mg/dL (8.5-10.1); CREATININE 0.7 mg/dL (0.6-1.3); MAGNESIUM 1.7 mg/dL (1.8-2.4)
--- NOTE | 2020-02-26 05:43 | NUR ---
ASSUMED CARES AT 1920. ALERT AND ORIENTED. FEELING DOWN DUE TO FINDING OUT THAT MAY HAVE TO GO TO SKILLED FACILITY. O2 4L NC. GETS ANXIOUS AND EASILY SOB. SALINE LOCK TO RIGHT FA. PAIN MEDS GIVEN FOR ASENCIO AND BUTTOCK PAIN. PT STATES THAT DAUGHTER BROUGHT IN TRIAD CREAM AND THIS IS REPLACING SILVADENE CREAM SO THIS WAS APPLIED INSTEAD TO BUTTOCK. CALDERON CATHETER DD YELLOW URINE. SLEPT OFF AND ON. CALL LIGHT IN REACH AND BED ALARM ON.
[2020-02-26 07:30] VITALS: BP 119/46
[2020-02-26 19:00] VITALS: BP 131/53
--- NOTE | 2020-02-26 19:55 | NUR ---
I ASSUMED CARE OF THE PATIENT AT 0700. SHE IS ALERT AND ORIENTED X4 AND IS UP WITH ONE AND A GAIT BELT, WALKER. BED IS IN THE LOW LOCKED POSITION AND CALL LIGHT IS IN REACH. PAIN IS MANAGED WITH PRN MEDS. HOURLY ROUNDING IS COMPLETED AND PATIENT NEEDS ARE MET. HER DAUGHTER IS TRYING TO CONVINCE HER TO USE A LOW AIR LOSS MATTRESS, BUT SHE ISN'T CONVINCED. MAGNESIUM WAS REPLACED TODAY. WOUND CARE ORDERS WERE CHANGED TO A 'TRIAD' CREAM THAT HER DAUGHTER BROUGHT IN. SHE USES 4 LITERS OF OXYGEN, WHICH IS HER BASELINE. SHE HAS SORES THAT NEED TREATED TID PER ORDERS. SHE DID WELL WITH THERAPY TODAY AND WAS ABLE TO GO OUTSIDE TO SEE HER PUPPY. SHE USES BENGAY AND A HOT PAD ON HER BACK. WILL CONTINUE TO MONITOR.
[2020-02-27 04:28] LABS: CALCIUM 8.1 mg/dL (8.5-10.1); CREATININE 0.8 mg/dL (0.6-1.3); POTASSIUM 4.1 mmol/L (3.5-5.1)
--- NOTE | 2020-02-27 04:29 | NUR ---
ASSUMED PT CARE AT 1930. PT ALERT AND ORIENTED X4, POLITE AND COOPERATIVE WITH CARES. ON 4L O2 PER NC. SL TO RIGHT FOREARM. CALDERON TO DD DRAINING YELLOW URINE. PRN AND SCHEDULED PAIN MEDICATION FOR BUTTOCK PAIN. CREAMS PER MAR TO BUTTOCKS AND LABIA. BENGAY TO BACK AT HS. BILATERAL PITTING EDEMA TO LOWER LEGS AND FEET. PT HAS STRONG PRODUCTIVE COUGH. PT SLEPT MOST OF THE NIGHT. CALL LIGHT IN REACH, BED ALARM ON FOR SAFETY. HOURLY ROUNDING IN PROGRESS, WILL CONTINUE TO MONITOR.
[2020-02-27 04:30] LABS: HEMATOCRIT 24.8 % (37.0-47.0); HEMOGLOBIN 8.5 gm/dL (12.0-15.0); MCH 33.5 pg (26.0-34.0); MCHC 34.2 g/dL (28.0-37.0); MPV 6.5 fl. (7.2-11.1); RBC 2.53 mil/uL (4.20-5.00); RDW-CV 16.7 % (10.5-14.5); WBC 6.7 thou/uL (4.0-11.0)
[2020-02-27 08:00] VITALS: BP 132/57
--- NOTE | 2020-02-27 17:50 | NUR ---
TEAM CONFRENCE MEETING HELD TODAY. CM AND PHYSICIAN SPOKE TO PT AND DTR AT THE BEDSIDE TO INFORM OF MEETING AND PLAN TO ATTEMPT TRANSFER FOR THE PT FOR OBGYN. PT AND DTR IN AGREEMENT WITH PLAN AND REQUEST TRANSFER TO #[facility] OR #2 [place]. CM SPOKE TO [facility] TRANSFER TEAM TO INITIATE TRANSFER FOR THE PT AND FAXED PT'S CLINICAL INFO. [facility] CONNECTED DR-TO-DR AND INFORM OF ARRANGED OUTPATIENT PT SCHEDULED FOR PT FOR TUESDAY MARCH 03, 2020. [facility] FAXED CM APPOINTMENT INFO TO PROVIDE TO PT. CM TO F/U WITH PHYSICIAN, PT AND DTR TO DISCUSS THIS AND D/C PLANNING. CM WILL REMAIN AVAILABLE TO ASSIST AND FOLLOW NEEDED.
--- NOTE | 2020-02-27 18:17 | NUR ---
ALERT AND ORIENTED X4. UP WITH 1 ASSIST, GAIT BELT AND WALKER. USING PO PAIN MEDICATION AND CREAMS/OINTMENTS TO HELP WITH PAIN IN BACK AND BUTTOCK AREA. TREATMENT DONE TO WOUNDS ORDERED. REMAINS ON O2 AT 4L/NC TO KEEP O2 SATS GREATER THAN 90%. NOTIFIED OF EDEMA IN LOWER EXTREMITIES. HAS CALDERON CATHETER PATENT WITH CLEAR YELLOW URINE. USES CALL LIGHT FOR ASSIST. FALL PRECAUTIONS IN PLACE. BED ALARM AND CHAIR ALARM USED.
[2020-02-27 19:00] VITALS: BP 152/69
--- NOTE | 2020-02-28 05:27 | NUR ---
ASSUMED PT CARE AT 1930. PT ALERT AND ORIENTED X4, POLITE AND COOPERATIVE WITH CARES. ON 4L O2 PER NC. NV PAIN MEDIATION AT HS FOR BUTTOCK PAIN. CREAMS AND OINTMENTS TO WOUNDS PER MAY. TUBIGRIPS REMOVED FROM BLE AT HS. PT SLEPT WELL UNTIL 0400 WHEN PRN TYLENOL GIVEN FOR HEADACHE. CALDERON TO DD DRAINING CLEAR YELLOW URINE. CALL LIGHT IN REACH, BED ALARM ON FOR SAFETY. HOURLY ROUNDING IN PROGRESS, WILL CONTINUE TO MONITOR.
[2020-02-28 08:00] VITALS: BP 134/50
--- NOTE | 2020-02-28 11:39 | NUR ---
WOUND NURSE: PATIENT SCHEDULED TO DISCHARGE OVER THE WEEKEND AND IS FOLLOWING UP AT APPT AT [facility], PER HER NURSE. REASSESSED WOUNDS ON BUTTOCK AND LABIA. GLUTEAL CLEFT WOUND NO LONGER APPEARING DEEP TISSUE INJURY, BUT NOW WITH FULL THICKNESS TISSUE LOSS MEASURING 5.0 X 3.5 X 0.2 CM, LINEAR IN SHAPE WITH RED AND YELLOW NONGRANULATING TISSUE IN THE WOUND BED. THE EROSION EXTENDS TO THE ANUS WHICH HAS MADE IT DIFFICULT TO TREAT. THERE IS SHALLOW STAGE 2 PRESSUE INJURY NOTED ON THE LEF BUTTOCK MEASUREING 2.5 X 3.5 X 0.1 CM. THERE IS SCANT SEROUS DRAINAGE NOTED. PATIENT IS FOLLOWED BY WOUND CARE DOCTOR, DR. DESIRE DO. PLAN TO SCHEDULE PATIENT TO FOLLOW UP WITH HER IN THE WOUND CARE CENTER NEXT WEEK. PLAN TO USE TRIAD BARRIER PASTE TO AFFECTED AREA EVERY SHIFT. PATIENT USING BACITRACIN TO LABIAL EXCORIATION. THIS WITH LOCALIZED REDNESS, NO DRAINAGE. THEE IS SMALL TO MODERATE AMOUNT OF SEROUSANGUINOUS DRAINAGE FROM THE OTHER.
--- NOTE | 2020-02-28 16:43 | NUR ---
ALERT AND ORIENTED X4. DENIES NEED FOR PAIN MEDICATION. WOUND NURSE HERE AND CHECKED WOUNDS. TREATMENTS DONE TO WOUNDS ORDERED. REMAINS ON O2 AT 4L/NC. CONTINUES TO HAVE CRACKLES IN LEFT LUNG. TAKES PILLS WHOLE 1 AT A TIME. HAS CALDERON CATHETER PATENT WITH CLEAR YELLOW URINE. USES CALL LIGHT FOR ASSIST. FALL PRECAUTIONS IN PLACE. BED ALARM AND CHAIR ALARM USED.
[2020-02-28 20:00] VITALS: BP 138/57
--- NOTE | 2020-02-29 05:26 | NUR ---
ASSUMED PT CARE AT 1930. PT ALERT AND ORIENTED X4, POLITE AND COOPERATIVE WITH CARES. PT HAVING INCONTINENT BOWEL MOVEMENT AT SHIFT CHANGE. PERICARE PROVIDED. ON 4L 02 PER NC. PRN PAIN MEDICATION FOR BUTTOCK PAIN. CALDERON TO DD DRAINING CLEAR YELLOW URINE. CALL LIGHT IN REACH, BED ALARM ON FOR SAFETY. HOURLY ROUNDING IN PROGRESS, WILL CONTINUE TO MONITOR.
[2020-02-29 08:30] VITALS: BP 130/53
--- NOTE | 2020-02-29 16:58 | NUR ---
ALERT AND ORIENTED X4. UP WITH 1 ASSIST, GAIT BELT AND WALKER. CREAMS AND GELS APPLIED TO SACRUM, BUTTOCKS AND LABIA WOUNDS ORDERED. MEDICATION APPLIED TO BACK AND RIGHT SHOULDER TO HELP WITH PAIN. HAS CALDERON CATHETER PATENT WITH CLEAR YELLOW URINE. REMAINS ON O2 AT 4 L/NC TO KEEP O2 SATS GREATER THAN 90%. USES CALL LIGHT FOR ASSIST. FALL PRECAUTIONS IN PLACE. BED ALARM AND CHAIR ALARM USED.
[2020-02-29 19:00] VITALS: BP 137/80; BP 141/81
[2020-03-01 03:58] LABS: HEMATOCRIT 20.7 % (37.0-47.0); HEMOGLOBIN 7.2 gm/dL (12.0-15.0); MCH 33.6 pg (26.0-34.0); MCHC 34.6 g/dL (28.0-37.0); MCV 96.9 fL (80.0-100.0); MPV 5.8 fl. (7.2-11.1); RBC 2.14 mil/uL (4.20-5.00); RDW-CV 17.6 % (10.5-14.5); WBC 7.2 thou/uL (4.0-11.0)
[2020-03-01 04:15] LABS: ALBUMIN 2.2 g/dL (3.4-5.0); CREATININE 0.7 mg/dL (0.6-1.3); MAGNESIUM 1.7 mg/dL (1.8-2.4); POTASSIUM 3.5 mmol/L (3.5-5.1); TOTAL BILIRUBIN 0.2 mg/dL (<0.1-1.0)
--- NOTE | 2020-03-01 05:16 | NUR ---
ASSUMED CARES AT 1920. ALERT AND ORIENTED. O2 3L NC. WOUNDS TO PERIRECTAL AREA ARE IMPROVING. TRIAD CREAM APPLIED. LABIA WOUND IS NOT INFLAMED. PT SAYS THAT AREAS ARE NOT PAINFUL. CALDERON CATHETER DD YELLOW URINE. PT ABLE TO TURN SELF ONTO SIDES IN BED. SLEPT OFF AND ON. CALL LIGHT IN REACH AND BED ALARM ON.
[2020-03-01 11:48] VITALS: BP 121/54
--- NOTE | 2020-03-01 17:59 | NUR ---
ASSESSMENT COMPLETED DOCUMENTED THIS MORNING. PATIENT HAS BEEN UP AND PARTICIPATING WITH THERAPY, INCREASED SOA AND LACK OF ENDURANCE NOTED. 02 AT 4LPM/NC WITH ACTIVITY AND 3LPM/NC AT REST. CALDERON CATHETER PATENT WITH DARK YELLOW URINE NOTED. ONLY REQUESTING TRIAD OINTMENT TO BUTTOCKS/LABIA AREA, STATES "IT FEELS BETTER THAN ANYTHING THEY HAVE TRIED."
[2020-03-01 20:05] VITALS: BP 114/57
--- NOTE | 2020-03-01 20:05 | NUR ---
RESTING QUIETLY IN BED. LAYING ON HER SIDE. PATIENT ABLE TO TURN SELF IN BED. CALDERON TO DEPENDENT DRAINAGE WITH YELLOW URINE. DENIES NEED FOR PAIN MEDICATION BUT DID ASK FOR VOLTAREN CREAM ON BACK NECK AND SHOULDERS. SALINE LOCK FLUSHES WITHOUT DIFFICULTY AND WITHOUT SIGNS SYMPTOMS OF INFECTION, NO EDEMA. CALL LIGHT WITHIN REACH.
--- NOTE | 2020-03-02 04:38 | NUR ---
RESTED ON/OFF. AFTER RECEIVING PAIN MEDICATION AT 2241 FOR COMPLAINT OF BACK AND BOTTOM PAIN RESTED BETTER. HOURLY ROUNDING IN PROGRESS.
[2020-03-02 08:00] VITALS: BP 123/57
--- NOTE | 2020-03-02 17:10 | NUR ---
ASSESSMENT COMPLETED DOCUMENTED THIS MORNING. PATIENT UP TO THE BSC FOR BOWEL MOVEMENT. REQUESTS FOR TRIAD OINTMENT ONLY ON SACRAL/LABIA AREA. MENTHOL OINTMENT ON BACK FOR PAIN RELIEF. SON IN TO VISIT THIS EVENING AND TOOK SOME PERSONAL BELONGINGS HOME IN ANTICIPATION OF PATIENT BEING DCD TUESDAY OR TUESDAY.
[2020-03-02 20:00] VITALS: BP 129/58
--- NOTE | 2020-03-02 20:10 | NUR ---
SITTING UP ON SIDE OF BED WATCHING HER IPAD. PAIN MEDICATION GIVEN PER REQUEST FOR COMPLAINT OF SORENESS ON BOTTOM. ALSO APPLIED VOLTAREN OINTMENT TO BACK AND SHOULDERS PER REQUEST. CALDERON TO DEPENDENT DRAINAGE WITH YELLOW URINE. OXYGEN NASAL CANNULA AT 3 LITERS WITH OXYGEN SATURATION OF 95%. CALL LIGHT WITHIN REACH.
[2020-03-03 04:22] LABS: HEMATOCRIT 21.4 % (37.0-47.0); HEMOGLOBIN 7.2 gm/dL (12.0-15.0); MCH 33.2 pg (26.0-34.0); MCHC 33.8 g/dL (28.0-37.0); MCV 98.3 fL (80.0-100.0); MPV 6.1 fl. (7.2-11.1); RBC 2.18 mil/uL (4.20-5.00); RDW-CV 18.3 % (10.5-14.5); WBC 8.5 thou/uL (4.0-11.0)
[2020-03-03 04:37] LABS: ALBUMIN 2.1 g/dL (3.4-5.0); CREATININE 0.7 mg/dL (0.6-1.3); POTASSIUM 3.6 mmol/L (3.5-5.1); TOTAL BILIRUBIN 0.1 mg/dL (<0.1-1.0); TOTAL PROTEIN 4.9 g/dL (6.4-8.2)
--- NOTE | 2020-03-03 04:55 | NUR ---
RESTED ON/OFF. EXCITED ABOUT MAYBE GOING HOME TODAY. NO FURTHER COMPLAINT OF PAIN. HOURLY ROUNDING IN PROGRESS.
[2020-03-03 07:57] VITALS: BP 105/55
[2020-03-03 11:22] VITALS: BP 105/55
[2020-03-03] MEDS ORDERED: NIFEREX TABLET1 EACH PO (13:35)
[2020-03-03] MEDS ORDERED: ZINC SULFATE220 MG PO (13:36)
[2020-03-03] MEDS ORDERED: HYDROCODON-ACE1 EAC7 PO (13:38)
[2020-03-03 15:04] VITALS: BP 105/55
--- NOTE | 2020-03-03 15:30 | NUR ---
CM INFORMED BY RN IN-CHARGE OF PT OF PLAN FOR PT TO D/C HOME TODAY WITH HH, AND FAMILY SUPPORT OF DTR. CM SPOKE TO PT AND DTR AND THEY CHOSE [facility] FOR HH. CM SPOKE TO [facility] TO INFORM OF THE HH REFERAL AND FAXED PT'S CLINICAL INFO AND D/C ORDERS. [facility] ACCEPTS PT FOR HH AND WILL CONTACT PT OE HER DTR TO ARRANGE A TIME TO VISIT. CM WILL REMAIN AVAILABLE TO ASSIST AND FOLLOW NEEDED. [facility] PHONE: [phone] FAX: [phone]
--- NOTE | 2020-03-03 15:43 | NUR ---
AM ASSESSMENT AND VITAL SIGNS COMPLETED DOCUMENTED. PT HAS MET HER DISCHARGE GOALS. DISCHARGE INSTRUCTIONS AND PRESCRIPTIONS GIVEN TO PT AND HER DAUGHTER, ALL QUESTIONS HAVE BEEN ANSWERED. HOME HEALTH SET UP TO FOLLOW PT. PT AND BELONGINGS TRNASPORTED TO EXIT, ASSISTED INTO CAR, DISCHARGED HOME IN STABLE CONDITION.
== END 2020-03-03 15:53 | disposition home or self-care (01) | DRG 947 ==
LOC: M.REH 15:54
PROVIDERS: Family Medicine; Internal Medicine; Nurse Practitioner; ADMIT Physical Medicine & Rehabilitation; ATTEND Physical Medicine & Rehabilitation
DX: R53.81 Other malaise (principal); J96.21 Acute and chronic respiratory failure with hypoxia; A41.89 Other specified sepsis; U07.1 COVID-19; J15.6 Pneumonia due to other Gram-negative bacteria; E44.0 Moderate protein-calorie malnutrition; J44.1 Chronic obstructive pulmonary disease with (acute) exacerbation; E87.1 Hypo-osmolality and hyponatremia; Z88.2 Allergy status to sulfonamides; Z88.8 Allergy status to other drugs, medicaments and biological substances; I87.8 Other specified disorders of veins

== ENCOUNTER → 2020-03-05 | Outpatient (CLI) | payer MEDICARE, OTHER ==
[~2020-03-05] MED LIST changes: +HYDROCODON-ACE1 EAC7 PO; +NIFEREX TABLET1 EACH PO; +ZINC SULFATE220 MG PO
== END ==
LOC: M.WC 09:00
PROVIDERS: ATTEND Surgery
DX: L89.152 Pressure ulcer of sacral region, stage 2 (principal); L89.322 Pressure ulcer of left buttock, stage 2; L89.312 Pressure ulcer of right buttock, stage 2; J44.9 Chronic obstructive pulmonary disease, unspecified; M81.0 Age-related osteoporosis without current pathological fracture; Z87.891 Personal history of nicotine dependence

== ENCOUNTER → 2020-03-12 | Outpatient (CLI) | payer MEDICARE, OTHER | LOC: M.WC 09:16 | PROVIDERS: ATTEND Surgery | DX: L89.152 Pressure ulcer of sacral region, stage 2 (principal); L89.322 Pressure ulcer of left buttock, stage 2; L89.312 Pressure ulcer of right buttock, stage 2; J44.9 Chronic obstructive pulmonary disease, unspecified; M81.0 Age-related osteoporosis without current pathological fracture; Z87.891 Personal history of nicotine dependence ==

== ENCOUNTER → 2020-03-19 | Outpatient (CLI) | payer MEDICARE, OTHER | LOC: M.WC 09:30 | PROVIDERS: ATTEND Surgery | DX: L89.152 Pressure ulcer of sacral region, stage 2 (principal); L89.322 Pressure ulcer of left buttock, stage 2; L89.312 Pressure ulcer of right buttock, stage 2; J44.9 Chronic obstructive pulmonary disease, unspecified; M81.0 Age-related osteoporosis without current pathological fracture; Z87.891 Personal history of nicotine dependence ==

== ENCOUNTER 2020-03-28 16:25 | Observation (INO) | payer MEDICARE, OTHER ==
[~2020-03-28] VITALS: Ht 160 cm; Wt 64.9 kg
[2020-03-28 16:35] VITALS: BP 130/53
[2020-03-28] MEDS ORDERED: ONDANSETRON HCL4 M2 PO (16:39)
[2020-03-28] MEDS ORDERED: CIPRO250 M2 PO (16:40)
[2020-03-28 17:12] LABS: ABSOLUTE BASOPHILS 0.1 thou/uL (0.0-0.2); ABSOLUTE EOSINOPHILS 0.2 thou/uL (0.0-0.7); ABSOLUTE LYMPHOCYTES 1.5 thou/uL (0.8-5.3); ABSOLUTE MONOCYTES 1.1 thou/uL (0.0-1.2); ABSOLUTE NEUTROPHILS 8.5 thou/uL (1.6-8.1); BASOPHILS 0.5 %; EOSINOPHILS 1.9 %; HEMATOCRIT 27.6 % (37.0-47.0); HEMOGLOBIN 9.2 gm/dL (12.0-15.0); LYMPHOCYTES 12.9 %; MCH 32.6 pg (26.0-34.0); MCHC 33.4 g/dL (28.0-37.0); MCV 97.7 fL (80.0-100.0); MPV 7.1 fl. (7.2-11.1); NUCLEATED RBCS 0 /100WBC; PLATELET COUNT* 273 thou/uL (150-400); POLYS 74.7 %; RBC 2.82 mil/uL (4.20-5.00); RDW-CV 16.8 % (10.5-14.5); WBC 11.4 thou/uL (4.0-11.0)
[2020-03-28 17:23] LABS: CALCIUM 8.9 mg/dL (8.5-10.1); CREATININE 1.7 mg/dL (0.6-1.3)
[2020-03-28 17:29] LABS: POTASSIUM 2.7 mmol/L (3.5-5.1)
[2020-03-28 17:33] LABS: ALBUMIN 2.7 g/dL (3.4-5.0); TOTAL BILIRUBIN 0.3 mg/dL (<0.1-1.0); TOTAL PROTEIN 5.9 g/dL (6.4-8.2)
[2020-03-28 18:36] LABS: URINE BILIRUBIN NEGATIVE (Negative); URINE BLOOD 2+ (Negative); URINE COLOR YELLOW; URINE GLUCOSE-RANDOM NEGATIVE (Negative); URINE KETONES NEGATIVE (Negative); URINE PROTEIN 1+ (Negative); URINE SPECIFIC GRAVITY 1.015 (1.005-1.030); URINE UROBILINOGEN 0.2 E.U./dl (0.2-1.0)
[2020-03-28 18:42] LABS: URINE CLARITY CLOUDY; URINE LEUKOCYTES-REFLEX 3+ (Negative); URINE NITRITE-REFLEX POSITIVE (Negative)
[2020-03-28 18:48] LABS: BACTERIA-REFLEX >30 Many /HPF (None Seen); CASTS None Seen /LPF (None Seen); CRYSTALS None Seen /LPF (None Seen); MUCUS 0-3 Light strn/LPF (None Seen); SQUAMOUS 0-3 Few /LPF (0-3); URINE RBC 3-10 Few /HPF (0-2); URINE WBC-REFLEX >25 Many /HPF (0-5)
--- NOTE | 2020-03-28 21:24 | NUR ---
PT DTR 'LINDA' CALLED W/QUESTIONS ABOUT BOARDING SITUATION, AM YUMIKO LAKHANI. LINDA REPORTED THAT PT HAS BED SORES AND IS ACTIVELY BEING TREATED BY OUR WOUND TEAM. SHE ALSO REPORTS CALDERON RELATED UTI WHICH SHE HAS BEEN TAKING PO ABX. LINDA CAN BE REACHED AT [phone].
[2020-03-29 01:16] VITALS: BP 121/38
[2020-03-29 05:37] VITALS: BP 130/59
[2020-03-29 09:00] VITALS: BP 132/49
[2020-03-29 09:24] LABS: CALCIUM 8.6 mg/dL (8.5-10.1); CREATININE 1.1 mg/dL (0.6-1.3); POTASSIUM 3.2 mmol/L (3.5-5.1)
--- NOTE | 2020-03-29 10:22 | EKG ---
[place] [address] ELECTROCARDIOGRAM REPORT Name: ELISE HSER Room: [address] M.R.#: [id number] Admission: 03/28/20 Attend Phys: Paco Crespo Discharge: Date of : 42 Date of Service: 03/28/20 [facility] Report #: [id number] THIS REPORT FOR: //name// [facility] ED Test Date: 2020-03-28 Test Time: 16:40:32 Pat Name: ELISE SHER Department: Room: [facility] Gender: F [employer] Advisor: : 1940 Requested By: Chaka Elise Order Number: [id number] MD: Javi Arrieta Measurements Intervals Industry Rate: 88 P: 74 MI: 133 QRS: 47 QRSD: 94 T: 41 QT: 363 QTc: 440 Interpretive Statements Sinus rhythm Probable left atrial enlargement Compared to ECG 02/18/2020 14:52:22 No significant changes Electronically Signed On 03-29-2020 10:22:19 INSURANCE MANAGER by Javi Arrieta [email or web address] <ELECTRONICALLY SIGNED> By: Javi Arrieta MD, FACC 03/29/20 1022 1640 1640 Javi Arrieta MD, [facility] /EPI
[2020-03-29 10:49] VITALS: BP 132/49
[2020-03-29 11:15] VITALS: BP 132/49
--- NOTE | 2020-04-01 09:56 | NUR ---
RECIEVED ORDERS FOR PT. WHILE IN THE ER ON 03/29. PT. DISCHARGED HOME PRIOR TO O.T. EVAL. PLEASE ORDER FURTHER O.T. SERVICES IF NEEDED.
== END 2020-03-29 11:15 | disposition home health service (06) ==
LOC: M.ERS 16:25 → M.TBA-ER 18:11
PROVIDERS: Family Medicine; Physician Assistant; ADMIT Internal Medicine; ATTEND Internal Medicine
DX: U07.1 COVID-19 (principal); N39.0 Urinary tract infection, site not specified; E87.6 Hypokalemia; N17.9 Acute kidney failure, unspecified; J44.9 Chronic obstructive pulmonary disease, unspecified; E44.0 Moderate protein-calorie malnutrition; D64.9 Anemia, unspecified; M81.0 Age-related osteoporosis without current pathological fracture; J96.10 Chronic respiratory failure, unspecified whether with hypoxia or hypercapnia; R53.1 Weakness; I87.8 Other specified disorders of veins; Z79.899 Other long term (current) drug therapy; Z79.01 Long term (current) use of anticoagulants; Z87.891 Personal history of nicotine dependence

== ENCOUNTER → 2020-04-02 | Outpatient (CLI) | payer MEDICARE, OTHER ==
[~2020-04-02] MED LIST changes: +CIPRO250 M2 PO; +ONDANSETRON HCL4 M2 PO
== END ==
LOC: M.WC 09:27
PROVIDERS: ATTEND Surgery
DX: L89.152 Pressure ulcer of sacral region, stage 2 (principal); L89.322 Pressure ulcer of left buttock, stage 2; L89.312 Pressure ulcer of right buttock, stage 2; J44.9 Chronic obstructive pulmonary disease, unspecified; M81.0 Age-related osteoporosis without current pathological fracture; Z87.891 Personal history of nicotine dependence

== ENCOUNTER → 2020-04-09 | Outpatient (CLI) | payer MEDICARE, OTHER | LOC: M.WC 09:18 | PROVIDERS: ATTEND Surgery | DX: L89.152 Pressure ulcer of sacral region, stage 2 (principal); L89.312 Pressure ulcer of right buttock, stage 2; J44.9 Chronic obstructive pulmonary disease, unspecified; M81.0 Age-related osteoporosis without current pathological fracture; Z87.891 Personal history of nicotine dependence ==

== ENCOUNTER → 2020-04-16 | Outpatient (CLI) | payer MEDICARE, OTHER | LOC: M.WC 09:27 | PROVIDERS: ATTEND Surgery | DX: L89.152 Pressure ulcer of sacral region, stage 2 (principal); L89.312 Pressure ulcer of right buttock, stage 2; I89.0 Lymphedema, not elsewhere classified; J44.9 Chronic obstructive pulmonary disease, unspecified; M81.0 Age-related osteoporosis without current pathological fracture; Z87.891 Personal history of nicotine dependence ==

== ENCOUNTER → 2020-04-30 | Outpatient (CLI) | payer MEDICARE, OTHER | LOC: M.WC 09:27 | PROVIDERS: ATTEND Surgery | DX: L89.152 Pressure ulcer of sacral region, stage 2 (principal); L89.312 Pressure ulcer of right buttock, stage 2; I89.0 Lymphedema, not elsewhere classified; J44.9 Chronic obstructive pulmonary disease, unspecified; M81.0 Age-related osteoporosis without current pathological fracture; Z87.891 Personal history of nicotine dependence ==

== ENCOUNTER → 2020-07-29 | Outpatient (CLI) | payer MEDICARE, OTHER ==
--- NOTE | 2020-07-29 10:21 | 2DMMODE ---
[place] [address] 2 D/M-MODE ECHOCARDIOGRAM Name: MAUREEN SHERNERISSA Hercules Room: [facility]#: [id number] Admission: 07/29/20 Attend Phys: Alice Olsen Discharge: Date of : 42 Date of Service: 07/29/20 1021 Report #: [id number] THIS REPORT FOR: cc: Chely Burch Linda J. DO Liston, Michael J. MD [facility] ~ APPROVED REPORT Study performed: 07/29/2020 08:43:13 EXAM: Comprehensive 2D, Doppler, and color-flow Echocardiogram Patient Location: Out-Patient BSA: 1.59 HR: 100 bpm BP: 140/72 mmHg Other Information Study Quality: Good Indications Dyspnea 2D Dimensions IVSd: 12.62 (7-11mm) LVOT Diam: 19.21 (18-24mm) LVDd: 43.29 mm PWd: 10.22 (7-11mm) Ascending Ao: 27.51 (22-36mm) LVDs: 24.46 (25-40mm) Aortic Root: 29.51 mm Volumes Left Atrial Volume (Systole) LA ESV Index: 18.90 mL/m2 Aortic Valve AoV Peak Ian.: 1.41 m/s AO Peak Gr.: 7.97 mmHg LVOT Max P.58 mmHg AO Mean Gr.: 4.42 mmHg LVOT Mean P.61 mmHg LVOT Max V: 1.28 m/s AO V2 VTI: 26.66 cm LVOT Mean V: 0.72 m/s GUANAKO (VTI): 2.45 cm2 LVOT V1 VTI: 22.55 cm Mitral Valve E/A Ratio: 0.68 [place] [address] 2 D/M-MODE ECHOCARDIOGRAM Name: ELISE SHER Room: [facility]#: [id number] Admission: 07/29/20 Attend Phys: Alice Olsen Discharge: Date of : 42 Date of Service: 07/29/20 1021 Report #: [id number] MV Decel. Time: 196.83 ms MV E Max Ian.: 0.64 m/s MV PHT: 57.08 ms MVA (PHT): 3.85 cm2 TDI E/Lateral E': 7.11 E/Medial E': 7.11 Medial E' Ian.: 0.09 m/s Lateral E' Ian.: 0.09 m/s Pulmonary Valve PV Peak Ian.: 0.96 m/s PV Peak Gr.: 3.68 mmHg Tricuspid Valve RAP Estimate: 5.00 mmHg TR Peak Gr.: 26.69 mmHg RVSP: 31.69 mmHg PA Pressure: 31.69 mmHg Left Ventricle The left ventricle is normal size. There is normal LV segmental wall motion. There is normal left ventricular wall thickness. Left ventricular systolic function is normal. LVEF is 55-60%. Grade I - abnormal relaxation pattern. Right Ventricle The right ventricle is normal size. The right ventricular systolic function is normal. Atria The left atrium size is normal. The right atrium size is normal. Aortic Valve The aortic valve is not well visualized. No aortic regurgitation is present. There is no aortic valvular stenosis. Mitral Valve The mitral valve is normal in structure. Mild mitral regurgitation. No evidence of mitral valve stenosis. Tricuspid Valve The tricuspid valve is normal in structure. Mild tricuspid regurgitation. The RVSP is 30-35 mmHg. Pulmonic Valve The pulmonary valve is normal in structure. [place] [address] 2 D/M-MODE ECHOCARDIOGRAM Name: ELISE SHER Room: [facility]#: [id number] Admission: 07/29/20 Attend Phys: Alice Olsen Discharge: Date of : 42 Date of Service: 07/29/20 1021 Report #: [id number] valvular regurgitation. Great Vessels The aortic root is normal in size. IVC is normal in size and collapses >50% with inspiration. Pericardium There is no pericardial effusion. <Conclusion> The left ventricle is normal size. There is normal left ventricular wall thickness. Left ventricular systolic function is normal. LVEF is 55-60%. Grade I - abnormal relaxation pattern. There is normal LV segmental wall motion. Mild mitral regurgitation. Mild tricuspid regurgitation. The RVSP is 30-35 mmHg. <ELECTRONICALLY SIGNED> By: Nikolai Zhong MD, FACC 07/29/20 1021 1021 1021 Nikolai Zhong MD, FACC /INF
== END ==
LOC: M.CRD 08:30
PROVIDERS: ATTEND Internal Medicine
DX: I08.1 Rheumatic disorders of both mitral and tricuspid valves (principal); I49.3 Ventricular premature depolarization

== ENCOUNTER → 2020-08-26 | Outpatient (CLI) | payer MEDICARE, OTHER | LOC: M.RAD 10:10 | PROVIDERS: ATTEND Internal Medicine Pulmonary Disease | DX: J44.9 Chronic obstructive pulmonary disease, unspecified (principal); Z86.16 Personal history of COVID-19; R91.8 Other nonspecific abnormal finding of lung field ==

== ENCOUNTER 2020-09-04 10:12 | Emergency (ER) | payer MEDICARE, OTHER ==
[~2020-09-04] VITALS: Ht 157.5 cm; Wt 59.0 kg
[2020-09-04] MEDS ORDERED: PREDNISONE 5 MG5 MG PO (10:31)
[2020-09-04 12:37] LABS: ABSOLUTE EOSINOPHILS 0.1 thou/uL (0.0-0.7); ABSOLUTE LYMPHOCYTES 1.2 thou/uL (0.8-5.3); ABSOLUTE MONOCYTES 0.8 thou/uL (0.0-1.2); ABSOLUTE NEUTROPHILS 7.2 thou/uL (1.6-8.1); BASOPHILS 0.4 %; EOSINOPHILS 1.2 %; HEMATOCRIT 37.3 % (37.0-47.0); HEMOGLOBIN 12.5 gm/dL (12.0-15.0); LYMPHOCYTES 12.8 %; MCH 32.8 pg (26.0-34.0); MCHC 33.6 g/dL (28.0-37.0); MCV 97.6 fL (80.0-100.0); MONOCYTES 8.5 %; MPV 7.2 fl. (7.2-11.1); NUCLEATED RBCS 0 /100WBC; PLATELET COUNT* 227 thou/uL (150-400); POLYS 77.1 %; RBC 3.82 mil/uL (4.20-5.00); RDW-CV 15.1 % (10.5-14.5); WBC 9.4 thou/uL (4.0-11.0)
[2020-09-04 12:40] LABS: CALCIUM 8.5 mg/dL (8.5-10.1); POTASSIUM 3.4 mmol/L (3.5-5.1)
[2020-09-04 12:50] VITALS: BP 145/82
== END 2020-09-04 12:50 | disposition short-term general hospital (02) ==
LOC: M.ERS 10:12
PROVIDERS: Emergency Medicine Emergency Medical Services
DX: S12.190A Other displaced fracture of second cervical vertebra, initial encounter for closed fracture (principal); Z20.822 Contact with and (suspected) exposure to COVID-19; S00.83XA Contusion of other part of head, initial encounter; J44.9 Chronic obstructive pulmonary disease, unspecified; Z87.891 Personal history of nicotine dependence; Z88.1 Allergy status to other antibiotic agents; Z88.8 Allergy status to other drugs, medicaments and biological substances; Z79.899 Other long term (current) drug therapy; Z99.81 Dependence on supplemental oxygen; W18.30XA Fall on same level, unspecified, initial encounter; Y93.89 Activity, other specified; Y92.89 Other specified places as the place of occurrence of the external cause; Y99.9 Unspecified external cause status